=== PATIENT | female | born 1945 | race Caucasian/White ===

== ENCOUNTER 2017-02-02 22:07 | Inpatient (IN) | payer MEDICARE, OTHER ==
[2017-02-02 22:44] LABS: #Eosinphils 0.3 thou/uL (0.0-0.7); #Lymphocytes 1.8 thou/uL (1.20-3.40); #Monocytes 0.6 thou/uL (0.11-0.59); #Neutrophils 6.9 thou/uL (1.40-6.50); %Basophils 0.3 % (0.0-1.0); %Eosinophils 2.9 % (0.0-10.0); %Lymphocytes 18.8 % (21.0-51.0); %Monocytes 6.2 % (0.0-10.0); Hematocrit 34.1 % (36.0-47.0); Mean Platelet Volume 7.1 fL (7.4-10.4); Red Blood Cell (RBC) Count 3.74 mill/uL (4.20-5.40); White Blood Cell (WBC) Count 9.7 thou/uL (4.8-10.8)
[2017-02-02 23:03] LABS: ALT (SGPT) 7 U/L (8-55); AST (SGOT) 11 U/L (5-34); Alkaline Phosphatase 131 U/L (40-150); Anion Gap 19 mmol/L (10-20); BUN (Urea Nitrogen) 15 mg/dL (9.8-20.1); Bilirubin, Total 0.5 mg/dL (0.2-1.2); Calc. Creatinine Clearance 0 mL/min (70-130); Calcium 8.9 mg/dL (7.8-10.44); Carbon Dioxide 22 mmol/L (23-31); Chloride 100 mmol/L (98-107); Estimated GFR-MDRD 53; Globulin 3.1 g/dL (2.4-3.5); Protein, Total 6.6 g/dL (6.0-8.3)
[2017-02-03] MEDS ORDERED: Enoxaparin Sodium 100 MG/ML SYRINGE ONE (01:52)
[2017-02-03] MEDS ORDERED: Enoxaparin Sodium 30 MG/0.3 ML SYRINGE ONE (02:04)
[2017-02-03] MEDS ORDERED: Acetaminophen 325 MG TAB PO PRN ×2 (02:47→07:02)
[2017-02-03] MEDS ORDERED: Ondansetron HCl/PF 4 MG/2 ML Vial IVP PRN ×2 (02:47→07:02)
[2017-02-03] MEDS ORDERED: Ondansetron ODT 4 MG TAB SL PRN (02:47)
[2017-02-03 03:23] VITALS: BMI 48.8
[2017-02-03] MEDS ORDERED: Chloraseptic Spray 180 ml Bottle PO PRN (07:02)
[2017-02-03] MEDS ORDERED: Artificial Tears 18 DROP/0.9 ML EA EYE PRN (07:02)
[2017-02-03] MEDS ORDERED: Loperamide HCl 2 MG CAP PO PRN (07:02)
[2017-02-03] MEDS ORDERED: Eucerin (Mineral Oil/Petrolatum,White) 30 gm Jar TOP PRN (07:02)
[2017-02-03] MEDS ORDERED: Zolpidem Tartrate 5 MG TAB PO PRN (07:02)
[2017-02-03] MEDS ORDERED: hydrALAZINE 20 MG/ML VIAL SLOW IVP PRN (07:02)
[2017-02-03] MEDS ORDERED: Diabetic Tussin 200 MG/10 ML UDCUP PO PRN (07:02)
[2017-02-03] MEDS ORDERED: Senokot 8.6 MG TAB PO PRN (07:02)
[2017-02-03] MEDS ORDERED: Ondansetron ODT 4 MG TAB PO PRN (07:02)
[2017-02-03] MEDS ORDERED: Sodium Chloride 0.65% Nasal 44 ML BOT EA NARE PRN (07:02)
[2017-02-03] MEDS ORDERED: Mag-Al 1200 mg/1200 mg/30 ML UDCUP PO PRN (07:02)
[2017-02-03] MEDS ORDERED: Loratadine 10 MG TAB PO PRN (07:02)
[2017-02-03 08:27] LABS: Prothrombin Time 13.7 SEC (12.0-14.7)
[2017-02-03] MEDS ORDERED: Enoxaparin Sodium 80 MG/0.8 ML SYRINGE SC SCH ×3 (09:00→11:00)
[2017-02-03] MEDS: Hydrochlorothiazide 25 MG TAB PO SCH (09:12)
[2017-02-03] MEDS: Docusate 100 MG CAP PO SCH (09:13)
[2017-02-03] MEDS: TROSPIUM 20 MG TABLET PO SCH ×2 (09:13→20:18)
[2017-02-03] MEDS ORDERED: Levothyroxine Sodium 25 MCG TAB PO SCH (11:00)
[2017-02-03] MEDS ORDERED: Levothyroxine Sodium 112 MCG TAB PO SCH (11:00)
[2017-02-03] MEDS: Levothyroxine Sodium 112 MCG TAB PO SCH (11:04)
[2017-02-03] MEDS: Levothyroxine Sodium 25 MCG TAB PO SCH (11:04)
[2017-02-03] MEDS: HYDROcodone/Acetaminophen 10/325 mg Tablet PO PRN (12:48)
[2017-02-03] MEDS: Milk Of Magnesia 30 ML UDCUP PO PRN (12:48)
--- NOTE | 2017-02-03 13:27 | ULT ---
PRELIMINARY REPORT/[facility]/EMERGENCY AFTER HOURS PROCEDURE: Addendum created by Khoi Watkins MD on 02/03/2017 12:54 AM Central Time ([place] & [place]) Findings dis cussed with FRED CAROLINA MD at time of interpretation. Initial Report created on 02/03/2017 12:35 A M Central Time ([place] & [place]) EXAM: US Duplex Bilateral Lower Extremity Veins EXAM DATE/TIME: Exam ordered 02/02/2017 11:35 PM CLINICAL HISTORY: 71 years old, female; Pain and signs and symptoms; Edema, localized; Lower extremity, bilateral; Leg, lower; Prior surgery; Surgery date: 1-6 months; Surgery type: Rt knee replacement; Patient HX: HX: P revious dvt ble last year, ivc filter in place TECHNIQUE: Real-time ultrasound scan of the veins of the bilateral lower extremities with color Doppler flow, sp ectral waveform analysis and compression. COMPARISON: No relevant prior studies available. FINDINGS: Right deep veins: Unremarkable. No DVT in the right common femoral, femoral, proximal deep femoral or popliteal veins. The veins demonstrate normal color flow, are normally compressible, with normal pha sic flow and/or augmentation response. Right superficial veins: Unremarkable. No thrombus in the visualized right great saphenous vein. Left deep veins: Essentially occlusive or near occlusive thrombosis throughout the left common femoral vein, superficial femoral vein, popliteal vein, and posterior tibial vein. Left superficial veins: Unremarkable. No thrombus in the visualized left great saphenous vein. Soft tissues: No acute findings. No popliteal cyst. IMPRESSION: 1. Essentially occlusive or near occlusive thrombosis throughout the left common femoral vein, superf icial femoral vein, popliteal vein, and posterior tibial vein. 2. No DVT in the right lower extremity. Thank you for allowing us to participate in the care of your patient. Dictated and Authenticated by: Khoi Watkins MD 02/03/2017 12:35 AM Central Time ([place] & [place]) FINAL REPORT EMERGENCY AFTER HOURS BILATERAL LOWER EXTREMITY VENOUS DOPPLER WITH SPECTRAL ANALYSIS AND COLOR FLOW EVALUATION: Date: 02/02/17 HISTORY: Bilateral lower extremity pain and localized edema. History of right knee replacement, as well as his tory of prior bilateral lower extremity deep venous thrombosis 1 year ago. IVC filter in place. IMPRESSION: 1. Occlusive or near occlusive deep venous thrombosis involving the left lower extremity extending f rom the left lower extremity posterior tibial vein to the left common femoral vein. 2. No evidence of a deep venous thrombosis involving the right lower extremity. 3. Subcutaneous edema distal left lower extremity. Findings are in agreement with the preliminary report by Nitin. POS: GREG
--- NOTE | 2017-02-03 13:57 | HP ---
PRIMARY CARE PHYSICIAN: Dr. Salinas Aguilar. REASON FOR ADMISSION: Acute deep vein thrombosis of left lower extremity. HISTORY OF PRESENT ILLNESS: A 71-year-old female who has morbid obesity, who has previous history of pulmonary embolism as well as deep vein thromboses. She also had IVC filter in place, who came to [facility] emergency room with increasing left lower extremity swelling and pain. Patient reports that she had right lower extremity swelling after knee replacement, which was done ab out a month ago, but after few weeks of surgery, patient's right lower extremity swelling was improve d and for the last one week she noticed that her left lower extremity was gradually getting more swol april than the right lower extremity and she was also having pain in her thigh as well as calf and she was concerned about and that is why she decided to come to the emergency room for evaluation. The pa dionte was also having significant amount of pain in her left lower extremity about 7/10 and that was also bothering her. The patient noticed that because of swelling and pain, her daily activity was al so reduced. Patient denies any immobilization. She denies any trauma to left lower extremity. She denies any fever or chills. She denies any chest pain, palpitation or shortness of breath. She has a history of DVT and pulmonary embolism, at that time, patient finished almost 6 months of [facility] anticoagulation therapy and patient also reported that she had IVC filter placed by Dr. Zaynab hsu after first time diagnosis of deep venous thrombosis and pulmonary embolism. ALLERGIES: CODEINE. The patient is not allergic to hydrocodone she is taking at home. HOME MEDICATIONS: Benazepril 40 mg p.o. daily, Colace 100 mg p.o. daily, hydrochlorothiazide 25 mg p .o. daily, [place] 10 1-2 tablets q.6 hourly p.r.n., Synthroid 137 mcg p.o. daily, Toprol-XL 50 mg p.o. daily, oxybutynin ER 10 mg p.o. daily, Effexor 75 mg p.o. daily. REVIEW OF SYSTEMS: The following complete review of systems was negative, unless otherwise mentioned in the HPI or below: Constitutional: Weight loss or gain, ability to conduct usual activities. Skin: Rash, itching. Eyes: Double vision, pain. ENT/Mouth: Nose bleeding, neck stiffness, pain, tenderness. Cardiovascular: Palpitations, dyspnea on exertion, orthopnea. Respiratory: Shortness of breath, wheezing, cough, hemoptysis, fever or night sweats. Gastrointestinal: Poor appetite, abdominal pain, heartburn, nausea, vomiting, constipation, or diarr hea. Genitourinary: Urgency, frequency, dysuria, nocturia. Musculoskeletal: Pain, swelling. Neurologic/Psychiatric: Anxiety, depression. Allergy/Immunologic: Skin rash, bleeding tendency. Please see my HPI for pertinent positives and negatives. All other review of systems reviewed and ne gative except as mentioned in the HPI. PAST MEDICAL HISTORY: Hypertension, hypothyroidism, obstructive sleep apnea, history of deep venous thrombosis and pulmonary embolism in 2004. PAST PSYCHIATRIC HISTORY: Anxiety and depression. PAST SURGICAL HISTORY: Right shoulder repair, left shoulder replacement, right knee arthroscopic jordana pollo, left knee total replacement, status post right total knee replacement, appendicectomy, cholecys tectomy, thyroidectomy, hysterectomy. SOCIAL HISTORY: Patient lives at home with her . No history of tobacco, alcohol or illicit d rug abuse. 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 FAMILY HISTORY: Mother from stroke by age of 80. Father from heart attack by age of 82. EMERGENCY ROOM COURSE: Patient is given Lovenox 1 mg per kg. PHYSICAL EXAMINATION: VITAL SIGNS: On arrival, blood pressure 128/91, pulse 121, respiratory rate 20, temperature 98.5, sa turation 98% on room air, weight 127.01 kilograms. GENERAL: Patient is currently alert, awake, no obvious acute distress. HEAD: Normocephalic, atraumatic. EYES: Pupils round, reactive to light. Extraocular muscles intact. ENT: Oropharynx within normal limits. Moist mucous membranes. No oral lesions. No pharyngeal eryt ren, no exudate. NECK: Supple, no JVD, no thyromegaly, no carotid bruits. LUNGS: Clear to auscultation without any rhonchi or rales. CARDIAC: S1, S2 regular. No murmur elicited, no gallop, no rub. ABDOMEN: Obesity present. Bowel sounds present, nontender, nondistended. No organomegaly, no mass, no suprapubic tenderness. BACK: Unremarkable, no CVA tenderness. EXTREMITIES: Upper extremities: Passive movement of all joints are normal. Lower extremities: Lef t lower extremity is swollen more than right lower extremity. Patient does have tenderness on the le ft lower extremity. NEUROLOGIC: Nonfocal examination. She is able to move all four limbs, plantar bilateral flexor. PSYCHIATRIC: Normal affect. SKIN: No skin rash. SIGNIFICANT LABORATORY DATA AND IMAGIN. Ultrasound of lower extremity positive for deep vein thrombosis in the left lower extremity with a left common femoral vein, superficial femoral vein, popliteal vein and posterior tibial vein involv ement. No DVT in the right lower extremity. 2. CBC: WBC 9.7, hemoglobin 11.2, platelet 235. INR 1.0. BMP: Sodium 137, potassium 3.5, chlorid e 100, carbon dioxide 22, BUN 15, creatinine 1.03, glucose 179, calcium 8.9. 3. LFTs: AST 11, ALT 7, alkaline phosphatase 131, albumin 3.5. ASSESSMENT AND PLAN: 1. Acute left lower extremity deep vein thromboses. The patient has pretty much extensive deep veno us thrombosis in left lower extremity, most likely related with her recent immobilization after a rig ht knee replacement. This patient has previous history of deep venous thrombosis well as pulmonary e mbolism. She does have an IVC filter in place. At this point, the patient decided with warfarin the rapy. I provided the patient education about Eliquis and Xarelto option and risk and benefits of war farin as well as risk and benefit of Eliquis and Xarelto therapy, but the patient selected warfarin t herapy, which she had experienced before. At this point, I will continue with Lovenox 1 mg per kg do bcutaneous twice daily along with warfarin therapy. We will monitor PT/INR and we will monitor H&H, platelets and creatinine every other day. Whenever INR is therapeutic, at that point, we will consid er changing to warfarin therapy only and consider discharge. This patient is advised to have chronic anticoagulation therapy for lifelong given second episode. Her pain will be controlled with [place]. 2. Morbid obesity with a history of obstructive sleep apnea. The patient can use her home CPAP mach ine if she wanted to use while in hospital. Dietary education given, weight loss education given. 3. Hypertension. If blood pressure permits, then we will continue benazepril 40 mg p.o. daily, Topr ol-XL 50 mg p.o. daily. 4. Hypothyroidism. We will continue Synthroid 137 mcg p.o. daily. 5. Anxiety and depression. We will continue Effexor 75 mg p.o. daily. 6. Osteoarthritis. The patient's pain will be controlled with [place]. 7. Deep venous thrombosis prophylaxis. Patient is already on full dose of Lovenox therapy. 8. Gastrointestinal prophylaxis, Protonix 40 mg p.o. daily. CODE STATUS: The patient is FULL CODE. Patient's is surrogate decision maker. Disposition and plan based on clinical course. We are expecting patient's stay in hospital more than 2 midnights. Plan of care discussed with the patient in detail.
[2017-02-03] MEDS: Warfarin Sodium 5 MG TAB PO SCH (17:16)
[2017-02-03] MEDS: Enoxaparin Sodium 80 MG/0.8 ML SYRINGE SC SCH (20:19)
[2017-02-04] MEDS: HYDROcodone/Acetaminophen 10/325 mg Tablet PO PRN ×2 (01:29→08:06)
[2017-02-04 05:21] LABS: #Basophils 0.1 thou/uL (0.0-0.2); #Eosinphils 0.5 thou/uL (0.0-0.7); #Lymphocytes 1.4 thou/uL (1.20-3.40); #Monocytes 0.7 thou/uL (0.11-0.59); #Neutrophils 6.1 thou/uL (1.40-6.50); %Basophils 0.6 % (0.0-1.0); %Eosinophils 5.7 % (0.0-10.0); %Lymphocytes 16.4 % (21.0-51.0); %Monocytes 7.5 % (0.0-10.0); Hematocrit 32.7 % (36.0-47.0); Mean Platelet Volume 8.4 fL (7.4-10.4); Red Blood Cell (RBC) Count 3.61 mill/uL (4.20-5.40); White Blood Cell (WBC) Count 8.7 thou/uL (4.8-10.8)
[2017-02-04 05:48] LABS: Prothrombin Time 14.1 SEC (12.0-14.7)
[2017-02-04 05:57] LABS: ALT (SGPT) Less than 7 U/L (8-55); AST (SGOT) 10 U/L (5-34); Alkaline Phosphatase 119 U/L (40-150); Anion Gap 13 mmol/L (10-20); BUN (Urea Nitrogen) 15 mg/dL (9.8-20.1); Bilirubin, Total 0.6 mg/dL (0.2-1.2); Calc. Creatinine Clearance 123 mL/min (70-130); Calcium 9.3 mg/dL (7.8-10.44); Carbon Dioxide 27 mmol/L (23-31); Chloride 98 mmol/L (98-107); Estimated GFR-MDRD 63; Globulin 3.3 g/dL (2.4-3.5); Protein, Total 6.6 g/dL (6.0-8.3)
[2017-02-04] MEDS: Levothyroxine Sodium 25 MCG TAB PO SCH (07:51)
[2017-02-04] MEDS: Levothyroxine Sodium 112 MCG TAB PO SCH (07:51)
[2017-02-04] MEDS: Docusate 100 MG CAP PO SCH ×2 (08:04→08:05)
[2017-02-04] MEDS: Hydrochlorothiazide 25 MG TAB PO SCH (08:05)
[2017-02-04] MEDS: TROSPIUM 20 MG TABLET PO SCH ×2 (08:05→21:13)
[2017-02-04] MEDS: Enoxaparin Sodium 80 MG/0.8 ML SYRINGE SC SCH ×2 (08:09→21:15)
--- NOTE | 2017-02-04 11:32 | PDOC.PN ---
- Subjective Encounter Start Date: 02/04/17 Encounter Start Time: 06:30 -: old records requested/rev Patient seen and examined. No new complaints. No overnight events - Objective Resuscitation Status: Resuscitation Status FULL:Full Resuscitation MAR Reviewed: Yes Vital Signs & Weight: Vital Signs (12 hours) Temp Pulse Resp BP BP Pulse Ox 02/04/17 08:05 120/63 02/04/17 08:00 98.3 F 86 20 100 02/04/17 07:25 98.3 F 86 20 138/73 100 02/04/17 04:00 98.3 F 83 16 130/61 93 L Weight Weight 302 lb 8 oz I&O: 02/03/17 02/04/17 02/05/17 06:59 06:59 06:59 Intake Total 120 Balance 120 Result Diagrams: 02/04/17 03:44 02/04/17 03:44 Radiology Reviewed by me: Yes ( ) Phys Exam - Physical Examination Constitutional: NAD HEENT: PERRLA, moist MMs, sclera anicteric Neck: no JVD, supple Respiratory: no wheezing, no rales, no rhonchi Cardiovascular: RRR, no significant murmur, no rub Gastrointestinal: soft, non-tender, no distention, positive bowel sounds obesity left leg sw[place]on Neurological: non-focal, normal sensation Psychiatric: normal affect, A&O x 3 Skin: no rash, normal turgor Dx/Plan (1) DVT, lower extremity, proximal, acute Code(s): I82.4Y9 - ACUTE EMBLSM AND THOMBOS UNSP DEEP VN UNSP PROX LOW EXTRM Status: Acute Qualifiers: Laterality: left Qualified Code(s): I82.4Y2 - Acute embolism and thrombosis of unspecified deep veins of left proximal lower extremity (2) Hypertension Code(s): I10 - ESSENTIAL (PRIMARY) HYPERTENSION Status: Chronic (3) Anxiety and depression Code(s): F41.8 - OTHER SPECIFIED ANXIETY DISORDERS Status: Chronic (4) Morbid obesity with BMI of 45.0-49.9, adult Code(s): E66.01 - MORBID (SEVERE) OBESITY DUE TO EXCESS CALORIES; Z68.42 - BODY MASS INDEX (BMI) 45.0-49.9, ADULT Status: Chronic (5) Hypothyroidism Code(s): E03.9 - HYPOTHYROIDISM, UNSPECIFIED Status: Chronic (6) History of pulmonary embolism Code(s): Z86.711 - PERSONAL HISTORY OF PULMONARY EMBOLISM Status: Chronic - Plan cont current plan of care * continue lovenox and wafarin * pain controlled * continue home medication * medication reviewed as below * symptomatic treatment. Review of Systems - Review of Systems Eyes: negative: Pain, Vision Change, Conjunctivae Inflammation, Eyelid Inflammation, Redness, Other ENT: negative: Ear Pain, Ear Discharge, Nose Pain, Nose Discharge, Nose Congestion, Mouth Pain, Mouth Swelling, Throat Pain, Throat Swelling, Other Respiratory: negative: Cough, Dry, Shortness of Breath, Hemoptysis, SOB with Excertion, Pleuritic Pain, Sputum, Wheezing Cardiovascular: negative: Chest Pain, Palpitations, Orthopnea, Paroxysmal Noc. Dyspnea, Edema, Light Headedness, Other Gastrointestinal: negative: Nausea, Vomiting, Abdominal Pain, Diarrhea, Constipation, Melena, Hematochezia, Other Genitourinary: negative: Dysuria, Frequency, Incontinence, Hematuria, Retention , Other Musculoskeletal: Leg Pain. negative: Neck Pain, Shoulder Pain, Arm Pain, Back Pain, Hand Pain, Foot Pain, Other Skin: negative: Rash, Lesions, Kwasi, Bruising, Other - Medications/Allergies Allergies/Adverse Reactions: Allergies Allergy/AdvReac Type Severity Reaction Status Date / Time codeine Allergy itch Verified 11/04/14 12:17 hydrocodone AdvReac itch Verified 11/04/14 12:17 surgical tape Allergy rash, hives Uncoded 11/04/14 12:17 Medications: Current Medications Acetaminophen (Tylenol) 650 mg PO Q4H PRN PRN Reason: Headache/Fever or Pain Hydrocodone Bitart/Acetaminophen ([place] 10/325) 1 tab PO Q6H PRN PRN Reason: Pain Last Admin: 02/04/17 08:06 Dose: 1 tab Al Hydroxide/Mg Hydroxide (Maalox) 30 ml PO Q6H PRN PRN Reason: Heartburn or Indigestion Artificial Tears (Tears Naturale) 0 drop EA EYE PRN PRN PRN Reason: Dry Eyes Benazepril HCl (Lotensin) 40 mg PO DAILY [facility] Last Admin: 02/04/17 08:05 Dose: 40 mg Docusate Sodium (Colace) 100 mg PO DAILY [facility] Last Admin: 02/04/17 08:05 Dose: 100 mg Enoxaparin Sodium (Lovenox) 140 mg SC 0900,2100 [facility] Last Admin: 02/04/17 08:09 Dose: 140 mg Guaifenesin (Robitussin Sf) 200 mg PO Q4H PRN PRN Reason: Cough Hydralazine HCl (Apresoline) 10 mg SLOW IVP Q4H PRN PRN Reason: Systolic BP > 180 Hydrochlorothiazide (Hydrochlorothiazide) 25 mg PO DAILY [facility] Last Admin: 02/04/17 08:05 Dose: 25 mg Levothyroxine Sodium (Synthroid) 112 mcg PO 0600 [facility] Last Admin: 02/04/17 07:51 Dose: 112 mcg Levothyroxine Sodium (Synthroid) 25 mcg PO 0600 [facility] Last Admin: 02/04/17 07:51 Dose: 25 mcg Loperamide HCl (Imodium) 2 mg PO PRN PRN PRN Reason: Diarrhea/Loose Stools Loratadine (Claritin) 10 mg PO DAILYPRN PRN PRN Reason: Sinus Symptoms Magnesium Hydroxide (Milk Of Magnesium) 30 ml PO DAILYPRN PRN PRN Reason: Constipation Last Admin: 02/03/17 12:48 Dose: 30 ml Metoprolol Succinate (Toprol Xl) 50 mg PO DAILY [facility] Last Admin: 02/04/17 08:05 Dose: 50 mg Mineral Oil/White Petrolatum (Eucerin Cream) 0 gm TOP BIDPRN PRN PRN Reason: Dry Skin Ondansetron HCl (Zofran Odt) 4 mg PO Q6H PRN PRN Reason: Nausea/Vomiting Ondansetron HCl (Zofran) 4 mg IVP Q6H PRN PRN Reason: Nausea/Vomiting Pantoprazole Sodium (Protonix) 40 mg PO DAILY [facility] Last Admin: 02/04/17 08:05 Dose: 40 mg Phenol (Chloraseptic [employer] 180 Ml Bot) 0 ml PO PRN PRN PRN Reason: Sore Throat Senna (Senokot) 2 tab PO HSPRN PRN PRN Reason: Constipation Sodium Chloride ([place] Nasal [employer] 0.65%) 0 ml EA NARE QIDPRN PRN PRN Reason: Nasal Congestion Trospium (Trospium Chloride) 20 mg PO BID [facility] Last Admin: 02/04/17 08:05 Dose: 20 mg Venlafaxine HCl (Effexor) 75 mg PO DAILY [facility] Last Admin: 02/04/17 08:06 Dose: 75 mg Warfarin Sodium (Coumadin) 5 mg PO 1700 [facility] Last Admin: 02/03/17 17:16 Dose: 5 mg Zolpidem Tartrate (Ambien) 5 mg PO HSPRN PRN PRN Reason: Insomnia
[2017-02-04] MEDS: Warfarin Sodium 5 MG TAB PO SCH (16:44)
[2017-02-05 04:04] LABS: Prothrombin Time 14.1 SEC (12.0-14.7)
[2017-02-05] MEDS: Levothyroxine Sodium 25 MCG TAB PO SCH (05:20)
[2017-02-05] MEDS: Levothyroxine Sodium 112 MCG TAB PO SCH (05:20)
[2017-02-05] MEDS: Enoxaparin Sodium 80 MG/0.8 ML SYRINGE SC SCH ×2 (08:45→20:38)
[2017-02-05] MEDS: Hydrochlorothiazide 25 MG TAB PO SCH (08:47)
[2017-02-05] MEDS: TROSPIUM 20 MG TABLET PO SCH ×2 (08:47→20:39)
[2017-02-05] MEDS: Docusate 100 MG CAP PO SCH (08:49)
--- NOTE | 2017-02-05 11:21 | PDOC.PN ---
- Subjective Encounter Start Date: 02/05/17 Encounter Start Time: 07:10 still has left leg swelling, pain controlled - Objective Resuscitation Status: Resuscitation Status FULL:Full Resuscitation MAR Reviewed: Yes Vital Signs & Weight: Vital Signs (12 hours) Temp Pulse Resp BP BP BP Pulse Ox 02/05/17 08:44 110/65 02/05/17 08:00 98.8 F 90 16 110/65 95 02/05/17 05:21 99.0 F 92 16 132/78 02/05/17 00:00 99.3 F 99 20 148/72 H 97 Weight Weight 302 lb 8 oz I&O: 02/04/17 02/05/17 02/06/17 06:59 06:59 06:59 Intake Total 1140 Output Total 775 Balance 365 Result Diagrams: 02/05/17 03:37 02/05/17 03:37 Phys Exam - Physical Examination Constitutional: NAD HEENT: PERRLA, moist MMs, sclera anicteric Neck: no nodes, no JVD, supple, full ROM Respiratory: no wheezing, no rales, no rhonchi Cardiovascular: RRR, no significant murmur, no rub Gastrointestinal: soft, non-tender, no distention, positive bowel sounds obesity+ edema left leg Neurological: non-focal, normal sensation, moves all 4 limbs Psychiatric: normal affect, A&O x 3 Skin: no rash, normal turgor Dx/Plan (1) DVT, lower extremity, proximal, acute Code(s): I82.4Y9 - ACUTE EMBLSM AND THOMBOS UNSP DEEP VN UNSP PROX LOW EXTRM Status: Acute Qualifiers: Laterality: left Qualified Code(s): I82.4Y2 - Acute embolism and thrombosis of unspecified deep veins of left proximal lower extremity (2) Hypertension Code(s): I10 - ESSENTIAL (PRIMARY) HYPERTENSION Status: Chronic (3) Anxiety and depression Code(s): F41.8 - OTHER SPECIFIED ANXIETY DISORDERS Status: Chronic (4) Morbid obesity with BMI of 45.0-49.9, adult Code(s): E66.01 - MORBID (SEVERE) OBESITY DUE TO EXCESS CALORIES; Z68.42 - BODY MASS INDEX (BMI) 45.0-49.9, ADULT Status: Chronic (5) Hypothyroidism Code(s): E03.9 - HYPOTHYROIDISM, UNSPECIFIED Status: Chronic (6) History of pulmonary embolism Code(s): Z86.711 - PERSONAL HISTORY OF PULMONARY EMBOLISM Status: Chronic - Plan cont current plan of care, PT/OT * change warfarin 7.5 mg po daily * continue lovenox * start PT * medication reviewed as below * symptomatic treatment. Review of Systems - Review of Systems Constitutional: negative: Fever, Chills, Sweats, Weakness, Malaise, Other Eyes: negative: Pain, Vision Change, Conjunctivae Inflammation, Eyelid Inflammation, Redness, Other ENT: negative: Ear Pain, Ear Discharge, Nose Pain, Nose Discharge, Nose Congestion, Mouth Pain, Mouth Swelling, Throat Pain, Throat Swelling, Other Cardiovascular: negative: Chest Pain, Palpitations, Orthopnea, Paroxysmal Noc. Dyspnea, Edema, Light Headedness, Other Gastrointestinal: negative: Nausea, Vomiting, Abdominal Pain, Diarrhea, Constipation, Melena, Hematochezia, Other Genitourinary: negative: Dysuria, Frequency, Incontinence, Hematuria, Retention , Other Musculoskeletal: Leg Pain. negative: Neck Pain, Shoulder Pain, Arm Pain, Back Pain, Hand Pain, Foot Pain, Other - Medications/Allergies Allergies/Adverse Reactions: Allergies Allergy/AdvReac Type Severity Reaction Status Date / Time codeine Allergy itch Verified 11/04/14 12:17 hydrocodone AdvReac itch Verified 11/04/14 12:17 surgical tape Allergy rash, hives Uncoded 11/04/14 12:17 Medications: Current Medications Acetaminophen (Tylenol) 650 mg PO Q4H PRN PRN Reason: Headache/Fever or Pain Hydrocodone Bitart/Acetaminophen ([place] 10/325) 1 tab PO Q6H PRN PRN Reason: Pain Last Admin: 02/04/17 08:06 Dose: 1 tab Al Hydroxide/Mg Hydroxide (Maalox) 30 ml PO Q6H PRN PRN Reason: Heartburn or Indigestion Last Admin: 02/05/17 01:15 Dose: 30 ml Artificial Tears (Tears Naturale) 0 drop EA EYE PRN PRN PRN Reason: Dry Eyes Benazepril HCl (Lotensin) 40 mg PO DAILY [facility] Last Admin: 02/05/17 08:44 Dose: 40 mg Docusate Sodium (Colace) 100 mg PO DAILY [facility] Last Admin: 02/05/17 08:49 Dose: 100 mg Enoxaparin Sodium (Lovenox) 140 mg SC 0900,2100 [facility] Last Admin: 02/05/17 08:45 Dose: 140 mg Guaifenesin (Robitussin Sf) 200 mg PO Q4H PRN PRN Reason: Cough Hydralazine HCl (Apresoline) 10 mg SLOW IVP Q4H PRN PRN Reason: Systolic BP > 180 Hydrochlorothiazide (Hydrochlorothiazide) 25 mg PO DAILY [facility] Last Admin: 02/05/17 08:47 Dose: 25 mg Levothyroxine Sodium (Synthroid) 112 mcg PO 0600 [facility] Last Admin: 02/05/17 05:20 Dose: 112 mcg Levothyroxine Sodium (Synthroid) 25 mcg PO 0600 [facility] Last Admin: 02/05/17 05:20 Dose: 25 mcg Loperamide HCl (Imodium) 2 mg PO PRN PRN PRN Reason: Diarrhea/Loose Stools Loratadine (Claritin) 10 mg PO DAILYPRN PRN PRN Reason: Sinus Symptoms Magnesium Hydroxide (Milk Of Magnesium) 30 ml PO DAILYPRN PRN PRN Reason: Constipation Last Admin: 02/03/17 12:48 Dose: 30 ml Metoprolol Succinate (Toprol Xl) 50 mg PO DAILY [facility] Last Admin: 02/05/17 08:47 Dose: 50 mg Mineral Oil/White Petrolatum (Eucerin Cream) 0 gm TOP BIDPRN PRN PRN Reason: Dry Skin Ondansetron HCl (Zofran Odt) 4 mg PO Q6H PRN PRN Reason: Nausea/Vomiting Last Admin: 02/05/17 08:42 Dose: 4 mg Ondansetron HCl (Zofran) 4 mg IVP Q6H PRN PRN Reason: Nausea/Vomiting Pantoprazole Sodium (Protonix) 40 mg PO DAILY [facility] Last Admin: 02/05/17 08:47 Dose: 40 mg Phenol (Chloraseptic [place] 180 Ml Bot) 0 ml PO PRN PRN PRN Reason: Sore Throat Senna (Senokot) 2 tab PO HSPRN PRN PRN Reason: Constipation Sodium Chloride ([place] Nasal [employer] 0.65%) 0 ml EA NARE QIDPRN PRN PRN Reason: Nasal Congestion Trospium (Trospium Chloride) 20 mg PO BID [facility] Last Admin: 02/05/17 08:47 Dose: 20 mg Venlafaxine HCl (Effexor) 75 mg PO DAILY [facility] Last Admin: 02/05/17 08:48 Dose: 75 mg Warfarin Sodium (Coumadin) 5 mg PO 1700 [facility] Last Admin: 02/04/17 16:44 Dose: 5 mg Zolpidem Tartrate (Ambien) 5 mg PO HSPRN PRN PRN Reason: Insomnia
[2017-02-05] MEDS: Warfarin Sodium 7.5 MG TAB PO SCH (16:35)
[2017-02-05] MEDS: Milk Of Magnesia 30 ML UDCUP PO PRN (16:57)
[2017-02-06] MEDS: HYDROcodone/Acetaminophen 10/325 mg Tablet PO PRN ×2 (00:52→21:27)
[2017-02-06 04:06] LABS: Prothrombin Time 16.8 SEC (12.0-14.7)
[2017-02-06] MEDS: Levothyroxine Sodium 25 MCG TAB PO SCH (06:17)
[2017-02-06] MEDS: Levothyroxine Sodium 112 MCG TAB PO SCH (06:17)
[2017-02-06] MEDS: TROSPIUM 20 MG TABLET PO SCH ×2 (08:30→21:28)
[2017-02-06] MEDS: Hydrochlorothiazide 25 MG TAB PO SCH (08:30)
[2017-02-06] MEDS: Docusate 100 MG CAP PO SCH (08:31)
[2017-02-06] MEDS: Enoxaparin Sodium 80 MG/0.8 ML SYRINGE SC SCH ×2 (08:32→21:30)
--- NOTE | 2017-02-06 11:39 | PDOC.PN ---
- Subjective Encounter Start Date: 02/06/17 Encounter Start Time: 07:00 Patient seen and examined. No new complaints. No overnight events - Objective Resuscitation Status: Resuscitation Status FULL:Full Resuscitation MAR Reviewed: Yes Vital Signs & Weight: Vital Signs (12 hours) Temp Pulse Resp BP BP Pulse Ox 02/06/17 08:30 136/66 02/06/17 08:00 98.4 F 71 16 136/66 97 02/06/17 05:30 98 F 87 19 133/67 97 02/05/17 23:55 99.2 F 85 19 133/76 94 L Weight Weight 302 lb 8 oz I&O: 02/05/17 02/06/17 02/07/17 06:59 06:59 06:59 Intake Total 1140 750 Output Total 775 Balance 365 750 Result Diagrams: 02/05/17 03:37 02/05/17 03:37 Phys Exam - Physical Examination Constitutional: NAD HEENT: PERRLA, moist MMs, sclera anicteric Neck: no JVD, supple Respiratory: no wheezing, no rales, no rhonchi Cardiovascular: RRR, no significant murmur, no rub Gastrointestinal: soft, non-tender, no distention, positive bowel sounds Musculoskeletal: pulses present left LE swelling Neurological: non-focal, normal sensation Psychiatric: normal affect, A&O x 3 Skin: no rash, normal turgor Dx/Plan (1) DVT, lower extremity, proximal, acute Code(s): I82.4Y9 - ACUTE EMBLSM AND THOMBOS UNSP DEEP VN UNSP PROX LOW EXTRM Status: Acute Qualifiers: Laterality: left Qualified Code(s): I82.4Y2 - Acute embolism and thrombosis of unspecified deep veins of left proximal lower extremity (2) Hypertension Code(s): I10 - ESSENTIAL (PRIMARY) HYPERTENSION Status: Chronic (3) Anxiety and depression Code(s): F41.8 - OTHER SPECIFIED ANXIETY DISORDERS Status: Chronic (4) Morbid obesity with BMI of 45.0-49.9, adult Code(s): E66.01 - MORBID (SEVERE) OBESITY DUE TO EXCESS CALORIES; Z68.42 - BODY MASS INDEX (BMI) 45.0-49.9, ADULT Status: Chronic (5) Hypothyroidism Code(s): E03.9 - HYPOTHYROIDISM, UNSPECIFIED Status: Chronic (6) History of pulmonary embolism Code(s): Z86.711 - PERSONAL HISTORY OF PULMONARY EMBOLISM Status: Chronic - Plan cont current plan of care, PT/OT * medication reviewed as below * symptomatic treatment * continue lovenox and warfarin. * tomorrow will increase warfarin if inr does not increase Review of Systems - Review of Systems ENT: negative: Ear Pain, Ear Discharge, Nose Pain, Nose Discharge, Nose Congestion, Mouth Pain, Mouth Swelling, Throat Pain, Throat Swelling, Other Respiratory: negative: Cough, Dry, Shortness of Breath, Hemoptysis, SOB with Excertion, Pleuritic Pain, Sputum, Wheezing Cardiovascular: negative: Chest Pain, Palpitations, Orthopnea, Paroxysmal Noc. Dyspnea, Edema, Light Headedness, Other Gastrointestinal: negative: Nausea, Vomiting, Abdominal Pain, Diarrhea, Constipation, Melena, Hematochezia, Other Genitourinary: negative: Dysuria, Frequency, Incontinence, Hematuria, Retention , Other Musculoskeletal: negative: Neck Pain, Shoulder Pain, Arm Pain, Back Pain, Hand Pain, Leg Pain, Foot Pain, Other Skin: negative: Rash, Lesions, Kwasi, Bruising, Other - Medications/Allergies Allergies/Adverse Reactions: Allergies Allergy/AdvReac Type Severity Reaction Status Date / Time codeine Allergy itch Verified 11/04/14 12:17 hydrocodone AdvReac itch Verified 11/04/14 12:17 surgical tape Allergy rash, hives Uncoded 11/04/14 12:17 Medications: Current Medications Acetaminophen (Tylenol) 650 mg PO Q4H PRN PRN Reason: Headache/Fever or Pain Hydrocodone Bitart/Acetaminophen ([place] 10/325) 1 tab PO Q6H PRN PRN Reason: Pain Last Admin: 02/06/17 00:52 Dose: 1 tab Al Hydroxide/Mg Hydroxide (Maalox) 30 ml PO Q6H PRN PRN Reason: Heartburn or Indigestion Last Admin: 02/05/17 01:15 Dose: 30 ml Artificial Tears (Tears Naturale) 0 drop EA EYE PRN PRN PRN Reason: Dry Eyes Benazepril HCl (Lotensin) 40 mg PO DAILY [facility] Last Admin: 02/06/17 08:30 Dose: 40 mg Docusate Sodium (Colace) 100 mg PO DAILY [facility] Last Admin: 02/06/17 08:31 Dose: 100 mg Enoxaparin Sodium (Lovenox) 140 mg SC 0900,2100 [facility] Last Admin: 02/06/17 08:32 Dose: 140 mg Guaifenesin (Robitussin Sf) 200 mg PO Q4H PRN PRN Reason: Cough Hydralazine HCl (Apresoline) 10 mg SLOW IVP Q4H PRN PRN Reason: Systolic BP > 180 Hydrochlorothiazide (Hydrochlorothiazide) 25 mg PO DAILY [facility] Last Admin: 02/06/17 08:30 Dose: 25 mg Levothyroxine Sodium (Synthroid) 112 mcg PO 0600 [facility] Last Admin: 02/06/17 06:17 Dose: 112 mcg Levothyroxine Sodium (Synthroid) 25 mcg PO 0600 [facility] Last Admin: 02/06/17 06:17 Dose: 25 mcg Loperamide HCl (Imodium) 2 mg PO PRN PRN PRN Reason: Diarrhea/Loose Stools Loratadine (Claritin) 10 mg PO DAILYPRN PRN PRN Reason: Sinus Symptoms Magnesium Hydroxide (Milk Of Magnesium) 30 ml PO DAILYPRN PRN PRN Reason: Constipation Last Admin: 02/05/17 16:57 Dose: 30 ml Metoprolol Succinate (Toprol Xl) 50 mg PO DAILY [facility] Last Admin: 02/06/17 08:31 Dose: 50 mg Mineral Oil/White Petrolatum (Eucerin Cream) 0 gm TOP BIDPRN PRN PRN Reason: Dry Skin Ondansetron HCl (Zofran Odt) 4 mg PO Q6H PRN PRN Reason: Nausea/Vomiting Last Admin: 02/05/17 08:42 Dose: 4 mg Ondansetron HCl (Zofran) 4 mg IVP Q6H PRN PRN Reason: Nausea/Vomiting Pantoprazole Sodium (Protonix) 40 mg PO DAILY [facility] Last Admin: 02/06/17 08:30 Dose: 40 mg Phenol (Chloraseptic [place] 180 Ml Bot) 0 ml PO PRN PRN PRN Reason: Sore Throat Senna (Senokot) 2 tab PO HSPRN PRN PRN Reason: Constipation Last Admin: 02/05/17 20:39 Dose: 2 tab Sodium Chloride ([place] Nasal [place]kins 0.65%) 0 ml EA NARE QIDPRN PRN PRN Reason: Nasal Congestion Trospium (Trospium Chloride) 20 mg PO BID [facility] Last Admin: 02/06/17 08:30 Dose: 20 mg Venlafaxine HCl (Effexor) 75 mg PO DAILY [facility] Last Admin: 02/06/17 08:31 Dose: 75 mg Warfarin Sodium (Coumadin) 7.5 mg PO 1700 [facility] Last Admin: 02/05/17 16:35 Dose: 7.5 mg Zolpidem Tartrate (Ambien) 5 mg PO HSPRN PRN PRN Reason: Insomnia
[2017-02-06] MEDS: Warfarin Sodium 7.5 MG TAB PO SCH (16:53)
[2017-02-07 04:35] LABS: Hematocrit 30.5 % (36.0-47.0)
[2017-02-07] MEDS: Levothyroxine Sodium 112 MCG TAB PO SCH (05:15)
[2017-02-07] MEDS: Levothyroxine Sodium 25 MCG TAB PO SCH (05:15)
--- NOTE | 2017-02-07 09:04 | PDOC.PN ---
- Subjective Encounter Start Date: 02/07/17 Encounter Start Time: 08:40 Subjective: f/u for LLE DVT on current Coumadin and Lovenox with INR 1.8. -: Some discomfort and persistent swelling in LLE. No CP, SOB - Objective Resuscitation Status: Resuscitation Status FULL:Full Resuscitation MAR Reviewed: Yes Vital Signs & Weight: Vital Signs (12 hours) Temp Pulse Resp BP BP Pulse Ox 02/07/17 07:28 98.1 F 70 20 122/59 L 02/07/17 03:25 98.4 F 70 12 129/65 97 02/07/17 02:59 98 02/06/17 23:26 99.8 F H 93 16 139/97 H 99 Weight Weight 302 lb 8 oz I&O: 02/06/17 02/07/17 02/08/17 06:59 06:59 06:59 Intake Total 750 400 Output Total 100 Balance 750 300 Result Diagrams: 02/07/17 03:41 02/07/17 03:41 Additional Labs: Microbiology 02/03/17 18:10 Stool Stool Occult Blood (GIANCARLO) - Final Laboratory Tests 02/02/17 02/04/17 02/05/17 22:34 03:44 03:37 Hgb 11.2 L 10.5 L 11.2 L INR 02/06/17 02/07/17 03:44 03:41 Hgb INR 1.3 1.8 Radiology Reviewed by me: Yes (BLE sono - LLE occlusive DVT) Phys Exam - Physical Examination Constitutional: NAD HEENT: PERRLA, oral pharynx no lesions Neck: no JVD, supple Respiratory: no wheezing, clear to auscultation bilateral Cardiovascular: RRR Gastrointestinal: soft, non-tender, no distention, positive bowel sounds LLE with marked edema Musculoskeletal: pulses present, edema present Neurological: normal sensation, moves all 4 limbs Psychiatric: A&O x 3 Skin: normal turgor, cap refill <2 seconds Dx/Plan (1) DVT, lower extremity, proximal, acute Code(s): I82.4Y9 - ACUTE EMBLSM AND THOMBOS UNSP DEEP VN UNSP PROX LOW EXTRM Status: Acute Qualifiers: Laterality: left Qualified Code(s): I82.4Y2 - Acute embolism and thrombosis of unspecified deep veins of left proximal lower extremity Comment: INR 1.8 on Coumadin, continue current dose of 7.5mg and likely will be therapeutic in 24h, continue Coumadin indefinitely give second recurrence of DVT (2) Anxiety and depression Code(s): F41.8 - OTHER SPECIFIED ANXIETY DISORDERS Status: Chronic (3) History of pulmonary embolism Code(s): Z86.711 - PERSONAL HISTORY OF PULMONARY EMBOLISM Status: Chronic Comment: IVC filter in place, see #1 (4) Hypertension Code(s): I10 - ESSENTIAL (PRIMARY) HYPERTENSION Status: Chronic Qualifiers: Hypertension type: essential hypertension Qualified Code(s): I10 - Essential (primary) hypertension Comment: Stable, continue current antihypertensive regimen (5) Hypothyroidism Code(s): E03.9 - HYPOTHYROIDISM, UNSPECIFIED Status: Chronic Comment: Continue Synthroid (6) Morbid obesity with BMI of 45.0-49.9, adult Code(s): E66.01 - MORBID (SEVERE) OBESITY DUE TO EXCESS CALORIES; Z68.42 - BODY MASS INDEX (BMI) 45.0-49.9, ADULT Status: Chronic - 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
[2017-02-07] MEDS: TROSPIUM 20 MG TABLET PO SCH ×2 (09:28→20:34)
[2017-02-07] MEDS: Hydrochlorothiazide 25 MG TAB PO SCH (09:28)
[2017-02-07] MEDS: Docusate 100 MG CAP PO SCH (09:29)
[2017-02-07] MEDS: Enoxaparin Sodium 80 MG/0.8 ML SYRINGE SC SCH ×2 (09:29→20:36)
[2017-02-07] MEDS: Warfarin Sodium 7.5 MG TAB PO SCH (17:39)
[2017-02-07] MEDS: Milk Of Magnesia 30 ML UDCUP PO PRN (19:42)
[2017-02-07] MEDS: HYDROcodone/Acetaminophen 10/325 mg Tablet PO PRN (20:44)
[2017-02-08 04:41] LABS: Prothrombin Time 26.3 SEC (12.0-14.7)
[2017-02-08] MEDS: Levothyroxine Sodium 112 MCG TAB PO SCH (05:58)
[2017-02-08] MEDS: Levothyroxine Sodium 25 MCG TAB PO SCH (05:58)
[2017-02-08] MEDS: Hydrochlorothiazide 25 MG TAB PO SCH (10:23)
[2017-02-08] MEDS: TROSPIUM 20 MG TABLET PO SCH (10:24)
[2017-02-08] MEDS: Docusate 100 MG CAP PO SCH (10:25)
[2017-02-08] MEDS: Enoxaparin Sodium 80 MG/0.8 ML SYRINGE SC SCH (10:29)
--- NOTE | 2017-02-08 11:46 | DIS ---
DATE OF ADMISSION: 02/03/2017 DATE OF DISCHARGE: 02/08/2017 DISCHARGE DIAGNOSES: 1. Acute left lower extremity deep venous thrombosis involving posterior tibial vein to the left com mon femoral vein. 2. History of pulmonary embolus status post inferior vena cava filter placement. 3. Hypertension, stable. 4. Hypothyroidism, stable. 5. Morbid obesity. 6. Anxiety/depression, stable. CONSULTATIONS: None. PERTINENT LABORATORY DATA AND X-RAY FINDINGS: Basic metabolic profile within normal limits. CBC ashley wed hemoglobin ranged between 10.1-11.2, platelet count ranged between 228-287, PT 26.3, INR 2.3 on 1 04/10/2016. Stool Hemoccult positive x1 on 02/03/2017. Left lower extremity venous Doppler study ankit ed 02/02/2017 positive for occlusive/near occlusive deep venous thrombosis of the left lower extremit y from the posterior tibial vein to left common femoral vein. HOSPITAL COURSE: Patient was admitted to the medical floor, who initially presented with left lower extremity edema and pain with limited mobility. The patient underwent evaluation including venous Do ppler study showing findings as stated previously. Patient with a prior history of right lower extre mity deep venous thrombosis treated for approximately 6 months with anticoagulation. The patient was initiated on Lovenox subcutaneously throughout her hospital course in addition to Coumadin. The pat ient's INR reached therapeutic levels on 02/08/2017 with current value of 2.3. Current recommendatio ns are to continue lifelong anticoagulation due to second episode of thrombosis. Overall, patient re mained clinically stable through the remainder of the hospital course with O2 saturations of 96%-100% on room air. The patient is ready for discharge on 02/08/2017. DISCHARGE MEDICATIONS: 1. Coumadin 5 mg 1 tablet p.o. daily, goal INR of 2-3. 2. Benazepril 40 mg 1 tablet p.o. daily. 3. Docusate sodium 100 mg 1 tablet p.o. daily. 4. Hydrochlorothiazide 25 mg 1 tablet p.o. daily. 5. Levothyroxine 137 mcg p.o. daily. 6. Toprol-XL 50 mg p.o. daily. 7. Oxybutynin 10 mg p.o. daily. 8. Effexor 75 mg 1 tablet p.o. daily. FOLLOWUP: Patient will follow up with her primary care provider, Dr. Salinas Aguilar within 7 days of dis charge. SPECIAL INSTRUCTIONS: Recommend PT/INR evaluation on 02/10/2017 with goal INR of 2-3. Recommend rep eat stool Hemoccult on first followup visit with primary care provider. DIET: Heart healthy and Coumadin prudent. CODE STATUS: FULL. DISPOSITION: Home on 02/08/2017. Total time preparing and coordinating discharge is 33 minutes.
[2017-02-08 11:58] VITALS: BP 127/70; TEMP 98.7
[2017-02-08] MEDS: Milk Of Magnesia 30 ML UDCUP PO PRN (13:38)
[2017-02-08] MEDS ORDERED: Enoxaparin Sodium 80 MG/0.8 ML SYRINGE SC SCH (21:00)
== END 2017-02-08 15:24 | disposition home or self-care (01) | DRG 300 ==
LOC: ERS 22:07 → ONC 02-03 02:45 → 3SW 02-05 08:15 → ONC 02-05 16:45
PROVIDERS: ADMIT Internal Medicine; ATTEND Internal Medicine
DX: I82.412 Acute embolism and thrombosis of left femoral vein (principal); Z68.42 Body mass index [BMI] 45.0-49.9, adult; I10 Essential (primary) hypertension; E66.01 Morbid (severe) obesity due to excess calories; E03.9 Hypothyroidism, unspecified; F41.9 Anxiety disorder, unspecified; F32.9 Major depressive disorder, single episode, unspecified; Z86.711 Personal history of pulmonary embolism; E78.5 Hyperlipidemia, unspecified; G47.33 Obstructive sleep apnea (adult) (pediatric); M19.90 Unspecified osteoarthritis, unspecified site
CPT/HCPCS: 36415; 80053; 82274; 82565; 85014; 85018; 85025; 85049; 85379; 85610; 93970; 96372; J1650; Q0162

== ENCOUNTER 2017-03-26 17:32 | Emergency (ER) | payer MEDICARE, OTHER ==
[2017-03-26] MEDS ORDERED: Sulfameth/Trimethoprim DS 800-160mg TAB ONE (18:48)
== END 2017-03-26 18:55 | disposition home or self-care (01) ==
LOC: ERS 17:32
DX: L02.414 Cutaneous abscess of left upper limb (principal); E66.9 Obesity, unspecified; E03.9 Hypothyroidism, unspecified; E78.5 Hyperlipidemia, unspecified; I10 Essential (primary) hypertension; F32.9 Major depressive disorder, single episode, unspecified
CPT/HCPCS: 10060

== ENCOUNTER 2017-03-28 11:22 | Emergency (ER) | payer MEDICARE, OTHER | END 2017-03-28 12:50 | disposition home or self-care (01) | LOC: ERS 11:22 | DX: L02.414 Cutaneous abscess of left upper limb (principal); E66.9 Obesity, unspecified; E03.9 Hypothyroidism, unspecified; E78.5 Hyperlipidemia, unspecified; F32.9 Major depressive disorder, single episode, unspecified; I10 Essential (primary) hypertension | CPT/HCPCS: 99211; 99282; G0463 ==

== ENCOUNTER 2017-05-24 15:52 | Outpatient (CLI) | payer MEDICARE, OTHER ==
--- NOTE | 2017-05-24 18:16 | MRI ---
MRI LUMBAR SPINE WITH AND WITHOUT CONTRAST 05/24/17 Multiplanar and multisequential imaging lumbar spine obtained. Postcontrast images were obtained afte r administration of 20 mL of Multihance IV. HISTORY: Low back pain. Lumbar spinal stenosis. Bilateral hip pain. Comparison made to MRI lumbar spine dated 04/22/15. Postoperative changes of lumbar spine again noted. On the right, pedicle screws are seen from L2 through S1. On the left, pedicle screws are seen at L2, L3 and L4 levels. There is a spondylolisthesis at L4-5 of grade I measured at approximately 7 mm in the sagittal plane, unchanged from the exam of 04/22/15. There is a fluid signal collection in the posterior tissues which extends from L2-3 disc to the L5-S1 disc measuring 6 cm craniocaudal dimension in the sagittal plane. This collection measures 3.3 cm AP dimension in the sagittal plane. This fluid collection was present on the prior exam and is slightly smaller today. Previous AP dimension of the fluid collection is measured at 4.5 cm. This was describ ed as a probable seroma on the prior report. At T12-L1, no significant disc bulge. No central canal or foraminal stenosis. At L1-2, disc bulge. Pedicle screws are seen bilaterally at L2. Facet hypertrophy. Moderate central c anal stenosis and mild foraminal stenosis on the left and moderate foraminal stenosis on the right. At L2-3, diffuse disc bulge. Pedicles screws are seen at L2 and L3. There is facet hypertrophy compre ssing the thecal sac Mild to moderate central canal stenosis. Bilateral foraminal stenosis. At L3-4, mild disc bulge. Prominent facet hypertrophy. Mild central canal stenosis. mild bilateral fo raminal stenosis. At L4-5, anterolisthesis as noted above. Mild associated disc bulge. Facet hypertrophy. Mild central canal stenosis. Bilateral foraminal stenosis. More prominent on the right. At L5-S1, minimal disc bulge. Facet hypertrophy. Mild foraminal stenosis bilaterally, slightly more p ronounced on the left. IMPRESSION: 1. Postop changes of the lumbar spine as described above with significant foraminal stenosis at multiple levels. 2. There continues to be a fluid signal collection in the posterior soft tissues which was prese nt on the prior exam of 04/22/15. This was described as a probable seroma on the prior study. It is sli ghtly smaller today with dimensions given above. POS: [facility]
--- NOTE | 2017-05-24 18:19 | RAD ---
LUMBAR SPINE: 05/24/17 Four views. Lateral views taken with neutral, flexion and extension positions. HISTORY: Lumbar spinal stenosis. Pedicle screws and rods are seen transfixing L2, L3 and L4. There are pedicle screws on the right at L5-S1 without rods. Disc implants are noted at L4-5 and L5-S1. There is grade I spondylolisthesis at L4-5. Moderate degenerative changes throughout. No significant change in alignment noted with flexion and extension. IMPRESSION: Postop and degenerative changes of lumbar spine. POS: [facility]
== END 2017-05-24 15:53 | disposition home or self-care (01) ==
LOC: MRI 15:52
PROVIDERS: ATTEND Neurological Surgery
DX: M48.061 Spinal stenosis, lumbar region without neurogenic claudication (principal); M47.896 Other spondylosis, lumbar region; M99.73 Connective tissue and disc stenosis of intervertebral foramina of lumbar region; Z98.890 Other specified postprocedural states
CPT/HCPCS: 72120; 72158

== ENCOUNTER 2017-06-30 07:12 | Day surgery (SDC) | payer MEDICARE, OTHER ==
[2017-06-29 10:05] VITALS: BMI 43.0
[2017-06-30 08:06] VITALS: BP 154/53; TEMP 97.2
--- NOTE | 2017-06-30 10:47 | RAD ---
LUMBAR MYELOGRAM: HISTORY: Lumbar radiculopathy. Previous fusion. COMPARISON: 04/03/2014 EXPOSURE: 1.9 minutes 4809.5 mGy per m2. FINDINGS: Chief Design Engineer lumbar spine radiograph demonstrates five lumbar type vertebral bodies. There are bilateral tr anspedicular screws at L2, L3, and L4. There is a right-sided transpedicular screw at L5 and S1. St able prosthesis at L4-L5 and at L5-S1 disk space. There is evidence of an IVC filter. Laminectomy defect at L3, L4, and L5. Successful lumbar puncture for intrathecal contrast administration. A total of 9 mL of Isovue 200M c ontrast was administered intrathecally. The patient tolerated the procedure well. No immediate or p ost procedure complications. TECHNIQUE: Consent obtained to perform a lumbar puncture for intrathecal contrast administration. The patient's back was evaluated. The L1-L2 level was deemed appropriate. The skin was prepped and draped in a s terile fashion. Lidocaine 1% buffered with sodium bicarbonate was used for local anesthesia. Under fluoroscopic guidance, a 22 gauge spinal needle was advanced into the CSF space. There was flow of c lear CSF into the hub of the needle. Via a short tubing catheter, a total of 9 mL of Isovue-M 200 co ntrast was administered intrathecally. The patient tolerated the procedure well. No immediate or po st procedure complications. IMPRESSION: Successful lumbar puncture for lumbar myelogram. POS: [facility]
--- NOTE | 2017-06-30 11:20 | CT ---
POST MYELOGRAM LUMBAR SPINE CT: HISTORY: Lumbar radiculopathy. Previous lumbar fusion surgery. COMPARISON: 04/03/14. CORRELATION: MRI lumbar spine 05/24/17. TECHNIQUE: Post myelogram lumbar spine CT is performed in the axial plane. Reformatted images are submitted for interpretation. FINDINGS: The visualized solid organs are unremarkable. There is evidence of previous surgery in the left uppe r quadrant. IVC filter is noted. Symmetric attenuation of the psoas muscles. There is evidence of a postoperative fluid collection in the posterior soft tissues, compatible with recent MRI. Refer to that report for further detail. There is mild bone demineralization throughout the lumbar spine. Vertebral body height is maintained. There is no fracture. There are bilateral transpedicular screws at L2, L3, and L4. A right-sided transpedicular screw at L5 and S1. No periha rdware lucency. Disk prosthesis at L4-L5 and L5-S1. There is 2.7 mm of retrolisthesis of L2 upon L3, 7.7 mm anterolisthesis of L4 upon L5. Vertebral body heights are maintained. There are no fractures. T10-T11 and T11-T12: No high-grade central canal stenosis or significant foraminal narrowing. T12-L1: No significant central canal stenosis. Neural foramina are patent bilaterally. L1-L2: Vacuum disk phenomenon. Small left paracentral disk bulge. Mild central canal stenosis. Mo derate bilateral neural foraminal narrowing. L2-L3: Posterior decompressive laminectomy defect. No high-grade central canal stenosis. Moderate bilateral foraminal narrowing. L3-L4: Posterior decompressive laminectomy defect. No significant posterior disk abnormality. Ther e is mild central canal stenosis due to posterior element hypertrophy. Mild bilateral foraminal narr owing. L4-L5: There is a disk prosthesis. There is some subtle soft tissue attenuation along the posterior margin of the disk space which may represent residual disk material versus scar tissue formation. P lease refer to recent lumbar spine MRI for further detail. There is evidence of a fluid collection a t the operative site. Overall, there is mild central canal stenosis. Mild to moderate right and mil d left foraminal narrowing. L5-S1: There is a disk prosthesis and posterior decompressive changes. No high-grade central canal stenosis. Mild bilateral foraminal narrowing. IMPRESSION: 1. Postoperative changes of the lumbar spine as above. 2. Varying degrees of central canal stenosis and foraminal narrowing as detailed above. 3. Fluid collection in the operative site which his presumed to be due to a seroma. Refer to MRI re port for further detail. POS: [facility]
[2017-06-30] MEDS ORDERED: Iopamidol 200 41% 50 ML VIAL FS ONE (11:41)
== END 2017-06-30 10:00 | disposition home or self-care (01) ==
LOC: RAD 07:12
PROVIDERS: ATTEND Neurological Surgery
PROC: B00B1ZZ Plain Radiography of Spinal Cord using Low Osmolar Contrast (ICD-10-PCS; principal; 2017-06-30)
DX: M54.16 Radiculopathy, lumbar region (principal); Z98.1 Arthrodesis status; Z88.5 Allergy status to narcotic agent; Z91.048 Other nonmedicinal substance allergy status
CPT/HCPCS: 62304; 72131; 72132

== ENCOUNTER 2017-07-20 14:12 | Emergency (ER) | payer MEDICARE, OTHER ==
--- NOTE | 2017-07-20 15:27 | ULT ---
LEFT LOWER EXTREMITY VENOUS ULTRASOUND: Comparison: 05-24-16 History: Left lower extremity pain and edema. Technique: Multiplanar grayscale and color doppler images were obtained in a left lower extremity sagar ous ultrasound. Spectral analysis of the doppler waveforms were performed. FINDINGS: There appears to be partially occlusive thrombus in the left popliteal vein extending up to the proxi mal superficial femoral vein. The left common femoral vein and profunda femoral vein are patent witho ut evidence of thrombus. The posterior tibial vein shows no evidence of thrombus. The greater sapheno us vein is patent without evidence of thrombus. IMPRESSION: There appears to be a partially occlusive thrombus in the left leg extending from the proximal superf icial femoral vein down to the popliteal vein. POS: [facility]
[2017-07-20 15:33] LABS: #Eosinphils 0.1 thou/uL (0.0-0.7); #Lymphocytes 1.3 thou/uL (1.20-3.40); #Monocytes 0.3 thou/uL (0.11-0.59); #Neutrophils 3.5 thou/uL (1.40-6.50); %Basophils 0.2 % (0.0-1.0); %Eosinophils 2.8 % (0.0-10.0); %Lymphocytes 23.8 % (21.0-51.0); %Monocytes 6.5 % (0.0-10.0); %Neutrophils 66.8 % (42.0-75.0); Hemoglobin 12.8 g/dL (12.0-16.0); Mean Corpuscular HGB CONC 32.1 g/dL (32.0-36.0); Mean Corpuscular Hemoglobin 27.8 pg (27.0-31.0); Mean Corpuscular Volume 86.5 fl (81.0-99.0); Mean Platelet Volume 7.6 fL (7.4-10.4); Platelet Count 252 thou/uL (130-400); RBC Distribution Width 15.8 % (11.5-14.5); Red Blood Cell (RBC) Count 4.59 mill/uL (4.20-5.40); White Blood Cell (WBC) Count 5.3 thou/uL (4.8-10.8)
[2017-07-20 15:42] LABS: ALT (SGPT) 9 U/L (8-55); AST (SGOT) 14 U/L (5-34); Albumin 3.7 g/dL (3.4-4.8); Alkaline Phosphatase 121 U/L (40-150); Anion Gap 15 mmol/L (10-20); BUN (Urea Nitrogen) 10 mg/dL (9.8-20.1); Bilirubin, Total 0.4 mg/dL (0.2-1.2); Calc. Creatinine Clearance 0 mL/min (70-130); Calcium 9.4 mg/dL (7.8-10.44); Carbon Dioxide 25 mmol/L (23-31); Chloride 103 mmol/L (98-107); Estimated GFR-MDRD 69; Globulin 2.7 g/dL (2.4-3.5); Glucose 158 mg/dL (83-110); Protein, Total 6.4 g/dL (6.0-8.3); Sodium 139 mmol/L (136-145)
[2017-07-20 15:51] LABS: PTT 27.1 SEC (22.9-36.1); Prothrombin Time 13.3 SEC (12.0-14.7)
[2017-07-20] MEDS ORDERED: Enoxaparin Sodium 100 MG/ML SYRINGE ONE (16:31)
[2017-07-20] MEDS ORDERED: Enoxaparin Sodium 40 MG/0.4 ML SYRINGE ONE (16:31)
[2017-07-20] MEDS ORDERED: Enoxaparin Sodium 60 MG/0.6 ML SYRINGE ONE (16:34)
== END 2017-07-20 17:04 | disposition home or self-care (01) ==
LOC: ERS 14:12
DX: I82.402 Acute embolism and thrombosis of unspecified deep veins of left lower extremity (principal); E66.9 Obesity, unspecified; E03.9 Hypothyroidism, unspecified; E78.5 Hyperlipidemia, unspecified; I10 Essential (primary) hypertension; Z86.711 Personal history of pulmonary embolism; F32.9 Major depressive disorder, single episode, unspecified
CPT/HCPCS: 80053; 85025; 85610; 85730; 96372; J1650

== ENCOUNTER 2017-07-21 12:40 | Emergency (ER) | payer MEDICARE, OTHER ==
[2017-07-21] MEDS ORDERED: Acetaminophen 325 MG TAB ONE (13:35)
[2017-07-21] MEDS ORDERED: Ketorolac Tromethamine 30 MG/ML VIAL ONE (13:35)
[2017-07-21] MEDS ORDERED: Enoxaparin Sodium 100 MG/ML SYRINGE ONE (14:08)
== END 2017-07-21 14:28 | disposition home or self-care (01) ==
LOC: ERS 12:40
DX: I82.492 Acute embolism and thrombosis of other specified deep vein of left lower extremity (principal); E66.9 Obesity, unspecified; E03.9 Hypothyroidism, unspecified; E78.5 Hyperlipidemia, unspecified; I10 Essential (primary) hypertension; F32.9 Major depressive disorder, single episode, unspecified; Z79.899 Other long term (current) drug therapy
CPT/HCPCS: 96372; J1650; J1885

== ENCOUNTER 2017-07-25 13:25 | Outpatient (CLI) | payer MEDICARE, OTHER ==
--- NOTE | 2017-07-25 14:54 | RAD ---
THREE VIEWS RIGHT FOOT: Indication: Right foot pain. Comparison: None. FINDINGS: No acute fracture or subluxation is evident. Lisfranc alignment is preserved. Enthesopathic change is seen off the calcaneus. IMPRESSION: No acute osseous abnormality. POS: [facility]
== END 2017-07-25 13:26 | disposition home or self-care (01) ==
LOC: RAD 13:25
PROVIDERS: ATTEND Nurse Practitioner Family
DX: M79.671 Pain in right foot (principal)

== ENCOUNTER 2017-12-19 07:02 | Emergency (ER) | payer MEDICARE, OTHER ==
--- NOTE | 2017-12-19 08:35 | ULT ---
DOPPLER VENOUS ULTRASOUND OF THE LEFT LOWER EXTREMITY: INDICATION: History of left leg pain and DVT. COMPARISON: Prior exam dated 07/20/2017. TECHNIQUE: Vail scale, color Doppler, and vascular duplex with spectral analysis was performed of the deep venou s structures of both lower extremities. The common femoral vein, superficial femoral vein, popliteal vein, posterior tibial vein, proximal greater saphenous, and proximal profunda veins were assessed bi laterally. FINDINGS: Again seen is prominent deep venous thrombosis within the left lower extremity from the common femora l vein down to the left popliteal vein. Portions within the proximal superficial femoral vein and le ft common femoral vein are nonocclusive. The portion within the popliteal vein is nonocclusive. The re is more occlusive thrombus seen within the mid to distal left femoral vein. IMPRESSION: Stable prominent deep vein thrombosis within the left lower extremity when compared to the prior date d 07/20/2017. POS: [facility]
[2017-12-19 08:43] LABS: INR-International Normal Ratio 3.5; PTT 61.9 SEC (22.9-36.1); Prothrombin Time 35.1 SEC (12.0-14.7)
[2017-12-19] MEDS ORDERED: Acetaminophen 325 MG TAB ONE (09:07)
== END 2017-12-19 10:30 | disposition home or self-care (01) ==
LOC: ERS 07:02
DX: I82.412 Acute embolism and thrombosis of left femoral vein (principal); I82.432 Acute embolism and thrombosis of left popliteal vein; R79.1 Abnormal coagulation profile; E66.9 Obesity, unspecified; E03.9 Hypothyroidism, unspecified; E78.5 Hyperlipidemia, unspecified; I10 Essential (primary) hypertension; F32.9 Major depressive disorder, single episode, unspecified; Z86.711 Personal history of pulmonary embolism; Z79.899 Other long term (current) drug therapy; Z79.01 Long term (current) use of anticoagulants
CPT/HCPCS: 36415; 85610; 85730

== ENCOUNTER 2017-12-30 06:53 | Day surgery (SDC) | payer MEDICARE, OTHER ==
[2017-12-29 13:00] VITALS: BMI 44.4
[~2017-12-30 06:53] MED LIST: Prevnar 13-Val Conj/PF 0.5 ML SYRINGE IM ONE
[2017-12-30 08:13] VITALS: BP 148/100; TEMP 97
[2017-12-30] MEDS ORDERED: Iopamidol-M 200 41% 20 ML VIAL ONE (10:01)
--- NOTE | 2017-12-30 10:24 | RAD ---
LUMBAR MYELOGRAM: HISTORY: Lumbar radiculopathy. COMPARISON: 06/30/2017. EXPOSURE: 0.6 minutes. 1623.2 mGy*^m2. NURSE RECEPTIONIST RADIOGRAPH: The initial cold roll packer sheet iron lumbar spine radiograph demonstrates bilateral transpedicular screws at L2, L3, and L4. Unilateral right-sided transverse screw at L5 and S1. Hardware is unchanged. Stable disk pros thesis at L4-L5 and L5-S1. There is anterolisthesis of L4 upon L5 and L5 upon S1. Suture material is noted in the left upper quadrant. IVC filter is identified. FINDINGS: Successful lumbar puncture. There is evidence of mixed injection. There subdural as well as intrathecal contrast. TECHNIQUE: Consent was obtained to perform a lumbar puncture for intrathecal contrast administration. The patie nt's back was evaluated. The L2-L3 level is deemed appropriate. The skin was prepped and draped in sterile fashion. 1% Lidocaine, buffered with sodium bicarbonate was used for local anesthesia. Unde r fluoroscopic guidance, a 22-gauge spinal needle was advanced into the CSF space. The inner stylett e was removed. There was prompt flow of clear CSF into the hub of the needle. Via a short tubing ca theter, a total of 10 cc of contrast was administered into the central spinal canal. There is a comp onent of contrast in the subdural space as well as into the thecal sac. IMPRESSION: Successful lumbar puncture. Please refer to post-myelogram CT for further detail. POS: [facility]
--- NOTE | 2017-12-30 11:41 | CT ---
POST MYELOGRAM CT LUMBAR SPINE: Date: 12/30/17 HISTORY: Lumbar radiculopathy. COMPARISON: 06/30/17. TECHNIQUE: Post myelogram lumbar spine CT is performed in the axial plane. Reformatted images are submitted for interpretation. FINDINGS: Redemonstration of bilateral transpedicular screw at L2, L3, and L4. Unilateral right-sided transpedi cular screw at L5 and S1. 9.0 mm of anterolisthesis of L4 upon L5. Note is made of an IVC filter. Retroperitoneal structures are unremarkable. Redemonstration of fluid attenuation in the posterior midline soft tissues at the level of surgery suggesting longstanding pos toperative fluid. Infected fluid is less favored given the oysterman presence of the fluid and the pa tient not reporting any fever or elevated white blood cell count. There is contrast in the thecal sac and in the subdural space. Small focus of air at L1-L2 is iatrogenic. Prominent anterior osteophyte at T11-T12. T10-T11: No high grade central canal stenosis or high grade foraminal narrowing. T11-T12: No high grade central canal stenosis or high grade foraminal narrowing. T12-L1: No high grade central canal stenosis or high grade foraminal narrowing. L1-L2: Mild central canal stenosis. No significant posterior disc abnormality. Moderate to severe ri ght and moderate left foraminal narrowing. L2-L3: Laminectomy defect. No significant posterior disc abnormality. No evidence of significant zara tral canal stenosis. Moderate to severe right and moderate left foraminal narrowing. L3-L4: Posterior laminectomy defect. No significant posterior disc abnormality. No significant centr al canal stenosis. Mild right foraminal narrowing. Left neural foramen is mildly narrowed as well. L4-L5: There is a disc prosthesis. Laminectomy defect is identified. No evidence of high grade centr al canal stenosis. Neural foramina are patent. There is mild to moderate right and mild left foramina l narrowing. L5-S1: Posterior laminectomy defect. There is disc prosthesis. No high grade central canal stenosis. Neural foramina are mildly narrowed. When compared to the previous examination, the postsurgical change is similar. The degree of anteroli sthesis is similar. There is no evidence of significant change in the overall degree of the patency o f the central spinal canal and neural foramina. IMPRESSION: 1. Stable fluid in the operative site, which is presumed to be seroma. 2. Stable postoperative changes of lumbar spine. 3. Stable central canal stenosis and foraminal narrowing. POS: [facility]
== END 2017-12-30 10:00 | disposition home or self-care (01) ==
LOC: RAD 06:53
PROVIDERS: ATTEND Neurological Surgery
PROC: B01B1ZZ Fluoroscopy of Spinal Cord using Low Osmolar Contrast (ICD-10-PCS; principal; 2017-12-30)
DX: M54.16 Radiculopathy, lumbar region (principal); M48.061 Spinal stenosis, lumbar region without neurogenic claudication; R32 Unspecified urinary incontinence; E66.01 Morbid (severe) obesity due to excess calories; Z68.41 Body mass index [BMI] 40.0-44.9, adult; Z86.718 Personal history of other venous thrombosis and embolism; Z79.01 Long term (current) use of anticoagulants; Z79.82 Long term (current) use of aspirin; Z79.899 Other long term (current) drug therapy; Z88.5 Allergy status to narcotic agent; Z91.048 Other nonmedicinal substance allergy status; Z98.1 Arthrodesis status; Z98.890 Other specified postprocedural states
CPT/HCPCS: 62304; 72132

== ENCOUNTER 2018-01-14 05:53 | Emergency (ER) | payer MEDICARE, OTHER ==
[2018-01-14 07:11] LABS: INR-International Normal Ratio 3.5; PTT 46.2 SEC (22.9-36.1); Prothrombin Time 35.4 SEC (12.0-14.7)
[2018-01-14 07:12] LABS: Hemoglobin 13.4 g/dL (12.0-16.0); Mean Corpuscular HGB CONC 32.2 g/dL (32.0-36.0); Mean Corpuscular Hemoglobin 28.3 pg (27.0-31.0); Mean Corpuscular Volume 87.8 fL (78.0-98.0); Mean Platelet Volume 7.4 fL (7.4-10.4); Platelet Count 320 thou/uL (130-400); RBC Distribution Width 14.4 % (11.5-14.5); Red Blood Cell (RBC) Count 4.76 mill/uL (4.20-5.40)
[2018-01-14 07:14] LABS: Anion Gap 13 mmol/L (10-20); BUN (Urea Nitrogen) 30 mg/dL (9.8-20.1); Calc. Creatinine Clearance 0 mL/min (70-130); Calcium 9.6 mg/dL (7.8-10.44); Carbon Dioxide 26 mmol/L (23-31); Chloride 101 mmol/L (98-107); Estimated GFR-MDRD 45; Glucose 176 mg/dL (83-110); Potassium 4.6 mmol/L (3.5-5.1); Sodium 135 mmol/L (136-145)
[2018-01-14 07:35] LABS: Band 8 % (5-11); Eosinophils 1 % (0-10); Lymphocytes 5 % (21-51); MDiff Complete? YES; Monocytes 3 % (0-10); Neutrophil 82 % (42-75); PLT Morphology Comment Appears Adequate; RBC Morphology Normal; Reactive Lymphocytes 1 % (0-10); White Blood Cell (WBC) Count 21.9 thou/uL (4.8-10.8)
[2018-01-14] MEDS ORDERED: Ferric Subsulfate Topical Solution TOP SCH (09:15)
[2018-01-14] MEDS ORDERED: Ferric Subsulfate 8 ML BOT ONE (09:24)
--- NOTE | 2018-01-14 12:33 | RAD ---
LEFT KENE 4 VIEWS: HISTORY: Fall. Left knee pain. FINDINGS/IMPRESSION: There are postop changes of total knee arthroplasty in good position and alignment. No fracture or d islocation is identified. POS: [facility]
--- NOTE | 2018-01-14 12:37 | CON ---
DATE OF CONSULTATION: 01/14/2018 CONSULTING PHYSICIAN: Dieter Thao D.O., Emergency Department. CHIEF COMPLAINT: Vaginal bleeding. HISTORY OF PRESENT ILLNESS: This is a 72-year-old para 2 who presented to the Emergency Department for acute onset of vaginal bleeding after intercourse. She reports that she had intercourse for the first time in 6 years last night and began bleeding heavily afterwards with passage of clots. She had a hysterectomy 25 years ago and has not had any vaginal bleeding since then prior to now. She denies any significant pain or other concerns at this time. She did fall this morning and hit her knee and is complaining of some left knee pain as well. REVIEW OF SYSTEMS: Negative for head, eyes, ears, nose, throat, cardiovascular , respiratory, GI, , neuro, psych, musculoskeletal, skin or constitutional symptoms other than mentioned above. PAST MEDICAL HISTORY: 1. Hypertension. 2. Obesity. 3. 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 Hypothyroidism. 5. Hyperlipidemia. PAST SURGICAL HISTORY: Right and left shoulder, right knee, left knee, appendectomy, cholecystectomy, thyroidectomy, left hip, rectocele and total abdominal hysterectomy with bilateral salpingo-oophorectomy. SOCIAL HISTORY: Negative for tobacco, alcohol or drug abuse. 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 ALLERGIES: CODEINE causes a mild rash, but she can take hydrocodone. MEDICATIONS: Gabapentin 600 mg b.i.d., metoprolol ER 50 mg daily, Biotin 1 mg daily, benazepril 40 mg daily, levothyroxine 150 mcg daily, [place] 10/325 every 6 hours as needed, duloxetine delayed release 60 mg daily, Flexeril 10 mg t.i.d. , Coumadin 10 mg daily. FAMILY HISTORY: Noncontributory. PHYSICAL EXAMINATION: VITAL SIGNS: Blood pressure 124/62, pulse 74, respiratory rate 18, temperature 98.1. GENERAL: Awake, alert, in no acute distress. CHEST: Nonlabored breathing. ABDOMEN: Obese, soft, nontender to palpation. PELVIC: Reveals a surgically absent cervix with a 3 cm laceration on the right vaginal sidewall at the cuff apex that was actively bleeding. This was cauterized with silver nitrate and Monsel's solution, which appears to have resolved the bleeding. Cuff appears intact. LABORATORY DATA: WBC 21.9, hemoglobin 13.4, hematocrit 41.7, platelets 320, 000. Coags, PT 35.4, PTT 46.2, INR 3.5. Chemistry, sodium 135, creatinine 1.17 , glucose 176. ASSESSMENT AND PLAN: A 72-year-old para 2 with acute onset of vaginal bleeding secondary to a vaginal laceration after intercourse. After application of silver nitrate and Monsel's solution, there appears to be good hemostasis. She was not anemic upon presentation and does not endorse any symptoms of anemia at this time. The patient will need to follow up with an [employer]NAGER [employer] in 2 weeks to make sure everything is healed and was instructed not to put anything in her vagina until then. From an [employer] standpoint, she is cleared to go home, but will need further evaluation of her knee and other lab abnormalities. JELLY
== END 2018-01-14 10:54 | disposition home or self-care (01) ==
LOC: ERS 05:53
DX: N93.9 Abnormal uterine and vaginal bleeding, unspecified (principal); M25.562 Pain in left knee; Z86.718 Personal history of other venous thrombosis and embolism; E66.9 Obesity, unspecified; E03.9 Hypothyroidism, unspecified; E78.5 Hyperlipidemia, unspecified; I10 Essential (primary) hypertension; F32.9 Major depressive disorder, single episode, unspecified; Z79.899 Other long term (current) drug therapy; Z79.01 Long term (current) use of anticoagulants
CPT/HCPCS: 80048; 85025; 85610; 85730; 86850; 86900; 86901

== ENCOUNTER 2018-03-23 14:07 | Outpatient (CLI) | payer MEDICARE ==
--- NOTE | 2018-03-23 15:51 | BD ---
DEXA BONE DENSITOMETRY: (Dual energy X-ray Absorptiometry) DATE: 03/23/18 HISTORY: 73-year-old postmenopausal white female for baseline age-related osteoporosis screening examination. Height: 66 Weight: 275 lbs TECHNIQUE: Because of surgical hardware in the lumbar spine and left hip, the DEXA evaluation was performed at f orearm and right hip. COMPARISON: None available. FINDINGS: Bone mineral density (BMD) is given in grams per square centimeter (g/cm2): FOREARM: BMD(g/cm2) T-score Z-score Distal metaphysis: 0.552 1.9 3.7 Distal diaphysis: 0.628 0.4 2.9 Mid diaphysis: 0.678 -0.3 2.3 Total: 0.607 0.5 3.0 HIP: Femoral neck: 0.764 -0.8 1.3 Total: 0.969 0.2 2.0 IMPRESSION: 1. The mean bone mineral density of the lumbar spine is normal. Fracture risk is not increased. 2. The bone mineral density of the femoral neck is normal. Fracture risk is not increased. JAN Lee POS: [facility]
== END 2018-03-23 14:08 | disposition home or self-care (01) ==
LOC: BICMAMMO 14:07
PROVIDERS: ATTEND Family Medicine
DX: Z12.31 Encounter for screening mammogram for malignant neoplasm of breast (principal); Z13.820 Encounter for screening for osteoporosis; Z78.0 Asymptomatic menopausal state
CPT/HCPCS: 77063; 77067; 77080

== ENCOUNTER 2018-12-21 13:38 | Outpatient (CLI) | payer MEDICARE ==
--- NOTE | 2018-12-21 15:26 | MRI ---
MRI Cervical spine without contrast: HISTORY: Cervical spondylosis with myelopathy and radiculopathy. Patient complains of neck pain when her neck pops. Bilateral arm and hand numbness for one year. COMPARISON: None FINDINGS: The craniocervical junction is unremarkable. No significant cord signal abnormality. Paravertebral soft tissues have a normal appearance and normal signal intensity. Multilevel degenerative changes are seen in the cervical spine. C1-2:No significant stenosis. C2-3: There is no disc bulge or disc herniation. The central spinal canal and neural foramina are pat ent. C3-4: There is slight loss of intervertebral disc height. There is a broad-based disc osteophyte comp blanca which results in mild narrowing of the central spinal canal with flattening of the anterior aspect of the spinal cord. Moderate bilateral neural foraminal narrowing is present. Facet hypertroph ic changes are identified. C4-5: There is a broad-based disc osteophyte complex and facet hypertrophic changes. Uncinate process hypertrophy is present on the right. Generalized narrowing of the central spinal canal is present. Moderate left and severe right-sided neural foraminal narrowing is noted. C5-6: There is loss of intervertebral disc height with broad-based disc osteophyte complex present. F acet hypertrophic changes are present greater on the right. There is mild narrowing of the central spinal canal with flattening of the ventral subarachnoid space. Moderate to severe bilateral neural f oraminal narrowing is present. C6-7: Broad-based disc osteophyte complex is present. Facet hypertrophic changes are seen on the righ t. There is generalized narrowing of the central spinal canal with slight flattening of the anterior aspect of the spinal cord. Neural foramina are patent C7-T1: There is a mild disc osteophyte complex which slightly effaces the ventral subarachnoid space. Neural foramina are patent T1-T2 level and T2-3 level: There are mild disc osteophyte complexes which result in slight flattenin g of the ventral subarachnoid space at these levels. Facet hypertrophic changes are noted. There is mild bilateral neural foraminal narrowing at the T1-2 level. IMPRESSION: Multilevel degenerative changes in the cervical spine with moderate to severe degrees of neural mary inal narrowing at the C4-5 and C5-6 levels.
--- NOTE | 2018-12-21 15:27 | RAD ---
TWO VIEWS LUMBAR SPINE: HISTORY: Lumbar spondylosis with myelopathy. COMPARISON: 09/24/2014. FINDINGS: Bilateral transpedicular screws at L2, L3, and L4. Unilateral right-sided transpedicular screw at L4 and L5. No perihardware lucency. There is moderate to severe degenerative change at L2-L3. No evidence of fracture. IVC filter and left hip prosthesis is noted. Spondylolisthesis: 2.2 mm of retrolisthesis of L2 upon L3. 2.4 mm of anterolisthesis of L3 upon L4. 1.2 cm of anterolisthesis of L4 upon L5. Disk prosthesis at L4-L5 and L5-S1 is noted. IMPRESSION: 1. Extensive lumbar fusion. 2. Spondylolisthesis as detailed above. POS: [facility]
== END 2018-12-21 13:39 | disposition home or self-care (01) ==
LOC: BICMRI 13:38
PROVIDERS: ATTEND Neurological Surgery
DX: M47.12 Other spondylosis with myelopathy, cervical region (principal); M54.2 Cervicalgia; M43.16 Spondylolisthesis, lumbar region; M47.16 Other spondylosis with myelopathy, lumbar region; M48.062 Spinal stenosis, lumbar region with neurogenic claudication; M48.02 Spinal stenosis, cervical region; Z98.1 Arthrodesis status
CPT/HCPCS: 72100; 72141

== ENCOUNTER 2019-01-18 13:11 | Outpatient (CLI) | payer MEDICARE ==
--- NOTE | 2019-01-18 15:54 | MRI ---
MRI LUMBAR SPINE WITH AND WITHOUT IV CONTRAST: INDICATION: History of multiple back surgeries with spondylosis and myelopathy. The patient had a history of a r ecent fall last week with back soreness. CONTRAST: 20 cc of MultiHance. COMPARISON: Lumbar radiograph dated 12/21/2018 and an MRI of the lumbar spine dated 05/24/2017. FINDINGS: No acute fracture is evident. Susceptibility artifact from bilateral pedicle screws at L2 through S1 appear similar-appearing. The postoperative seroma within the laminectomy defect sites at the L3 th rough L5 level is slightly smaller now measuring 5.6 x 3.6 x 2.6 cm. Previously, this collection radha sured 6.1 x 3.3 x 2.6 cm. Laminectomy defect sites are seen at the L5-S1 level, L4-5, L3-4 levels. There is very slight anterior translation of L4 on L5 and L5 on S1. There is slight retrolisthesis o f L2 on L3 and L1 on L2. Conus is seen to terminate at approximately L1. Visualized aspects of the retroperitoneum and paravertebral soft tissues appear within normal limits, except for the above-mentioned seroma. At L5-S1, there is a broad-based bulge with facet hypertrophy inducing mild neural foraminal narrowin g. This is stable to the prior exam. At L4-5, there is anterolisthesis with a broad-based pseudobulge and loss of height inducing moderate bilateral neural foraminal narrowing which is stable. At L3-4, there is a broad-based bulge with facet hypertrophy inducing mild bilateral neural foraminal narrowing which is stable. At L2-3, there is a broad-based bulge with facet hypertrophy inducing moderate to severe bilateral ne ural foraminal narrowing which is stable. At the L1-L2 level, there is a broad-based bulge with facet hypertrophy inducing mild left neural for aminal narrowing and moderate right neural foraminal narrowing which is stable. At T12-L1, there is no appreciable central canal or neural foraminal narrowing. Postcontrast imaging demonstrates no definite region of abnormal enhancement. IMPRESSION: Stable postoperative lumbar spine with stable multilevel severe spondylosis with multilevel neural fo raminal narrowing as detailed above. POS: [facility]
== END 2019-01-18 13:12 | disposition home or self-care (01) ==
LOC: BICMRI 13:11
PROVIDERS: ATTEND Neurological Surgery
DX: M47.16 Other spondylosis with myelopathy, lumbar region (principal); M48.061 Spinal stenosis, lumbar region without neurogenic claudication; Z98.890 Other specified postprocedural states
CPT/HCPCS: 72158; 82565

== ENCOUNTER 2019-05-25 15:22 | Outpatient (CLI) | payer MEDICARE ==
--- NOTE | 2019-05-25 15:40 | RAD ---
Chest 2 views HISTORY: Cough and wheezing. Congestion. COMPARISON: 12/27/2009. FINDINGS: Cardiac silhouette and pulmonary vasculature are unremarkable. Mediastinum is midline. No c onfluent airspace consolidation, pneumothorax, or pleural fluid. Postoperative changes of the shoulders and lumbar spine partially visualized. There is ossification o f the anterior longitudinal ligament of the thoracic spine on the lateral view consistent with diffuse idiopathic skeletal hyperostosis. IMPRESSION: No active cardiopulmonary abnormalities are demonstrated.
== END 2019-05-25 15:23 | disposition home or self-care (01) ==
LOC: BICRAD 15:22
PROVIDERS: ATTEND Physician Assistant
DX: R06.2 Wheezing (principal)
CPT/HCPCS: 71046

== ENCOUNTER 2019-06-24 21:59 | Emergency (ER) | payer MEDICARE ==
--- NOTE | 2019-06-24 22:53 | RAD ---
AP CHEST: History: Dyspnea. Comparison: Two view chest, 05-25-2019 FINDINGS: Lungs appear clear and unchanged. Heart size is upper normal and stable. Vascular markings normal. Th e shoulder prostheses are again noted. IMPRESSION: No acute lung process. POS: [facility]
[2019-06-24 23:02] LABS: #Basophils 0.1 thou/uL (0.0-0.2); #Eosinphils 0.8 thou/uL (0.0-0.7); #Lymphocytes 2.4 thou/uL (1.20-3.40); #Monocytes 0.6 thou/uL (0.11-0.59); #Neutrophils 5.9 thou/uL (1.40-6.50); %Basophils 1.2 % (0.0-1.0); %Eosinophils 8.2 % (0.0-10.0); %Lymphocytes 24.4 % (21.0-51.0); %Monocytes 5.7 % (0.0-10.0); %Neutrophils 60.5 % (42.0-75.0); Hemoglobin 13.5 g/dL (12.0-16.0); Mean Corpuscular Hemoglobin 30.6 pg (27.0-31.0); Mean Corpuscular Volume 89.8 fL (78.0-98.0); Mean Platelet Volume 7.7 fL (7.4-10.4); Platelet Count 249 thou/uL (130-400); RBC Distribution Width 14.2 % (11.5-14.5); White Blood Cell (WBC) Count 9.8 thou/uL (4.8-10.8)
[2019-06-24 23:23] LABS: Anion Gap 14 mmol/L (10-20); BUN (Urea Nitrogen) 18 mg/dL (9.8-20.1); Calc. Creatinine Clearance 0 mL/min (70-130); Calcium 9.3 mg/dL (7.8-10.44); Carbon Dioxide 26 mmol/L (23-31); Chloride 103 mmol/L (98-107); Estimated GFR-MDRD 53; Glucose 156 mg/dL (83-110); Potassium 3.8 mmol/L (3.5-5.1); Sodium 139 mmol/L (136-145)
== END 2019-06-24 23:46 | disposition home or self-care (01) ==
LOC: ERS 21:59
DX: J45.909 Unspecified asthma, uncomplicated (principal); E03.9 Hypothyroidism, unspecified; I10 Essential (primary) hypertension; E78.5 Hyperlipidemia, unspecified; Z79.01 Long term (current) use of anticoagulants; Z79.899 Other long term (current) drug therapy
CPT/HCPCS: 71045; 80048; 83880; 85025; 87804

== ENCOUNTER 2019-08-22 13:56 | Outpatient (CLI) | payer MEDICARE ==
--- NOTE | 2019-08-22 15:31 | MMO ---
Bilateral MAMMO Bilat Screen [facility]. CLINICAL HISTORY: Patient is 74 years old and is seen for screening. The patient has no family history of breast cancer. The patient has no personal history of cancer. VIEWS: The views performed were: bilateral craniocaudal with tomosynthesis and bilateral mediolateral oblique with tomosynthesis. FILMS COMPARED: The present examination has been compared to prior imaging studies performed at [facility] on 03/11/2015, 03/13/2015, 03/12/2016 and 03/23/2018. This study has been interpreted with the assistance of computer-aided detection. MAMMOGRAM FINDINGS: There are scattered fibroglandular densities. Finding 1: There are stable benign appearing calcifications seen in both breasts. Finding 2: There are stable benign appearing densities seen in both breasts. There are no suspicious masses, suspicious calcifications, or new areas of architectural distortion. IMPRESSION: THERE IS NO MAMMOGRAPHIC EVIDENCE OF MALIGNANCY. A ROUTINE FOLLOW-UP MAMMOGRAM IN 1 YEAR IS RECOMMENDED. THE RESULTS OF THIS EXAM WERE SENT TO THE PATIENT. ACR BI-RADS Category 2 - Benign finding MAMMOGRAPHY NOTE: 1. A negative mammogram report should not delay a biopsy if a dominant of clinically suspicious mass is present. 2. Approximately 10% to 15% of breast cancers are not detected by mammography. 3. Adenosis and dense breasts may obscure an underlying neoplasm. Reported by: MARY ENRIQUEZ MD Electonically Signed: [id number]
== END 2019-08-22 13:57 | disposition home or self-care (01) ==
LOC: BICMAMMO 13:56
PROVIDERS: ATTEND Physician Assistant
DX: Z12.31 Encounter for screening mammogram for malignant neoplasm of breast (principal)
CPT/HCPCS: 77063; 77067

== ENCOUNTER 2019-08-22 15:38 | Outpatient (CLI) | payer MEDICARE, OTHER ==
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
== END 2019-08-22 15:39 | disposition home or self-care (01) ==
LOC: TBSIIMAG 15:38
PROVIDERS: ATTEND Neurological Surgery
DX: M47.16 Other spondylosis with myelopathy, lumbar region (principal); M43.16 Spondylolisthesis, lumbar region; Z98.1 Arthrodesis status
CPT/HCPCS: 72100

== ENCOUNTER 2021-07-24 14:32 | Emergency (ER) | payer OTHER ==
[2021-07-24] MEDS ORDERED: Furosemide 20 MG/2 ML VIAL ONE (15:18)
[2021-07-24 16:06] LABS: #Basophils 0.1 thou/uL (0.0-0.2); #Eosinphils 0.2 thou/uL (0.0-0.7); #Lymphocytes 2.3 thou/uL (1.20-3.40); #Monocytes 0.5 thou/uL (0.11-0.59); #Neutrophils 4.8 thou/uL (1.40-6.50); %Basophils 0.7 % (0.0-1.0); %Eosinophils 2.4 % (0.0-10.0); %Monocytes 6.7 % (0.0-10.0); %Neutrophils 61.2 % (42.0-75.0); Hemoglobin 13.8 g/dL (12.0-16.0); Mean Corpuscular Hemoglobin 29.8 pg (27.0-31.0); Mean Corpuscular Volume 90.3 fL (78.0-98.0); Platelet Count 192 thou/uL (130-400); RBC Distribution Width 14.5 % (11.5-14.5); Red Blood Cell (RBC) Count 4.63 mill/uL (4.20-5.40); White Blood Cell (WBC) Count 7.8 thou/uL (4.8-10.8)
[2021-07-24 16:32] LABS: ALT (SGPT) 13 U/L (8-55); AST (SGOT) 19 U/L (5-34); Albumin 3.7 g/dL (3.4-4.8); Alkaline Phosphatase 93 U/L (40-110); Anion Gap 17 mmol/L (10-20); BUN (Urea Nitrogen) 10 mg/dL (9.8-20.1); Bilirubin, Total 0.7 mg/dL (0.2-1.2); Calc. Creatinine Clearance 0 mL/min (70-130); Calcium 9.5 mg/dL (7.8-10.44); Carbon Dioxide 21 mmol/L (23-31); Chloride 103 mmol/L (98-107); Globulin 3.4 g/dL (2.4-3.5); Glucose 143 mg/dL (83-110); Protein, Total 7.1 g/dL (5.8-8.1); Sodium 137 mmol/L (136-145)
== END 2021-07-24 17:43 | disposition home or self-care (01) ==
LOC: ERS 14:32
DX: R60.0 Localized edema (principal); E11.9 Type 2 diabetes mellitus without complications; Z86.718 Personal history of other venous thrombosis and embolism; E03.9 Hypothyroidism, unspecified; E78.5 Hyperlipidemia, unspecified; Z86.711 Personal history of pulmonary embolism
CPT/HCPCS: 36415; 71045; 80053; 83880; 84484; 85025; 93005; 96374; J1940

== ENCOUNTER 2021-07-28 08:29 | Emergency (ER) | payer OTHER ==
[2021-07-28 09:19] LABS: #Eosinphils 0.1 thou/uL (0.0-0.7); #Lymphocytes 1.9 thou/uL (1.20-3.40); #Monocytes 0.5 thou/uL (0.11-0.59); %Basophils 0.2 % (0.0-1.0); %Eosinophils 1.5 % (0.0-10.0); %Lymphocytes 21.8 % (21.0-51.0); %Neutrophils 70.6 % (42.0-75.0); Hemoglobin 14.3 g/dL (12.0-16.0); Mean Corpuscular HGB CONC 31.9 g/dL (32.0-36.0); Mean Corpuscular Hemoglobin 29.1 pg (27.0-31.0); Mean Corpuscular Volume 91.3 fL (78.0-98.0); Mean Platelet Volume 7.5 fL (7.4-10.4); Platelet Count 255 thou/uL (130-400); RBC Distribution Width 14.4 % (11.5-14.5); Red Blood Cell (RBC) Count 4.92 mill/uL (4.20-5.40); White Blood Cell (WBC) Count 8.5 thou/uL (4.8-10.8)
[2021-07-28 09:29] LABS: ALT (SGPT) 12 U/L (8-55); AST (SGOT) 13 U/L (5-34); Albumin 3.7 g/dL (3.4-4.8); Alkaline Phosphatase 93 U/L (40-110); Anion Gap 17 mmol/L (10-20); BUN (Urea Nitrogen) 13 mg/dL (9.8-20.1); Bilirubin, Total 1.1 mg/dL (0.2-1.2); Calc. Creatinine Clearance 0 mL/min (70-130); Carbon Dioxide 21 mmol/L (23-31); Chloride 102 mmol/L (98-107); Globulin 3.3 g/dL (2.4-3.5); Glucose 214 mg/dL (83-110); Potassium 3.8 mmol/L (3.5-5.1); Sodium 136 mmol/L (136-145)
[2021-07-28 11:50] LABS: Troponin I 0.013 ng/mL (< 0.028)
== END 2021-07-28 13:02 | disposition home or self-care (01) ==
LOC: ERS 08:29
DX: R06.02 Shortness of breath (principal); N28.9 Disorder of kidney and ureter, unspecified; I11.0 Hypertensive heart disease with heart failure; I50.9 Heart failure, unspecified; E11.9 Type 2 diabetes mellitus without complications; E03.9 Hypothyroidism, unspecified; E78.5 Hyperlipidemia, unspecified; Z79.01 Long term (current) use of anticoagulants; Z79.890 Hormone replacement therapy; Z79.899 Other long term (current) drug therapy; Z86.718 Personal history of other venous thrombosis and embolism; Z86.711 Personal history of pulmonary embolism
CPT/HCPCS: 36415; 71045; 71275; 80053; 83880; 84484; 85025; 93005; 94760

== ENCOUNTER 2021-09-28 23:23 | Emergency (ER) | payer OTHER ==
[2021-09-29 01:21] LABS: #Eosinphils 0.2 thou/uL (0.0-0.7); #Lymphocytes 2.1 thou/uL (1.20-3.40); #Monocytes 0.5 thou/uL (0.11-0.59); %Basophils 0.4 % (0.0-1.0); %Eosinophils 2.4 % (0.0-10.0); %Lymphocytes 21.3 % (21.0-51.0); %Monocytes 4.9 % (0.0-10.0); Mean Corpuscular HGB CONC 31.7 g/dL (32.0-36.0); Mean Corpuscular Volume 94.6 fL (78.0-98.0); Mean Platelet Volume 8.3 fL (7.4-10.4); Platelet Count 236 thou/uL (130-400); RBC Distribution Width 13.5 % (11.5-14.5); Red Blood Cell (RBC) Count 4.34 mill/uL (4.20-5.40); White Blood Cell (WBC) Count 9.9 thou/uL (4.8-10.8)
[2021-09-29 01:48] LABS: ALT (SGPT) 12 U/L (8-55); AST (SGOT) 14 U/L (5-34); Albumin 3.7 g/dL (3.4-4.8); Alkaline Phosphatase 107 U/L (40-110); Anion Gap 18 mmol/L (10-20); BUN (Urea Nitrogen) 12 mg/dL (9.8-20.1); Bilirubin, Total 0.8 mg/dL (0.2-1.2); Calc. Creatinine Clearance 0 mL/min (70-130); Calcium 9.4 mg/dL (7.8-10.44); Carbon Dioxide 21 mmol/L (23-31); Chloride 105 mmol/L (98-107); Estimated GFR 63; Globulin 3.1 g/dL (2.4-3.5); Glucose 132 mg/dL (83-110); Potassium 3.6 mmol/L (3.5-5.1); Protein, Total 6.8 g/dL (5.8-8.1); Sodium 140 mmol/L (136-145)
[2021-09-29] MEDS ORDERED: Furosemide 40 MG/4 ML VIAL ONE (02:03)
[2021-09-29] MEDS ORDERED: Furosemide 40 MG TAB ONE (02:14)
== END 2021-09-29 02:40 | disposition home or self-care (01) ==
LOC: ERS 23:23
DX: R06.00 Dyspnea, unspecified (principal); E11.9 Type 2 diabetes mellitus without complications; I10 Essential (primary) hypertension; E03.9 Hypothyroidism, unspecified; E78.5 Hyperlipidemia, unspecified; I26.99 Other pulmonary embolism without acute cor pulmonale; F32.A Depression, unspecified; Z79.899 Other long term (current) drug therapy; Z79.01 Long term (current) use of anticoagulants
CPT/HCPCS: 36415; 71045; 80053; 83880; 84484; 85025; 93005; J1940

== ENCOUNTER 2022-01-28 20:49 | Emergency (ER) | payer OTHER, MEDICARE ==
[2022-01-28] MEDS ORDERED: FENTANYL 50 MCG/ML 1 ML VIAL ONE (23:30)
== END 2022-01-29 00:56 | disposition home or self-care (01) ==
LOC: ERS 20:49
DX: S00.03XA Contusion of scalp, initial encounter (principal); S00.33XA Contusion of nose, initial encounter; D32.9 Benign neoplasm of meninges, unspecified; E78.5 Hyperlipidemia, unspecified; E03.9 Hypothyroidism, unspecified; E11.9 Type 2 diabetes mellitus without complications; I10 Essential (primary) hypertension; W01.0XXA Fall on same level from slipping, tripping and stumbling without subsequent striking against object, initial encounter; Y92.091 Bathroom in other non-institutional residence as the place of occurrence of the external cause; Z79.01 Long term (current) use of anticoagulants; Z79.899 Other long term (current) drug therapy
CPT/HCPCS: 70450; 70486; 72125; 73564 ×2; J3010; 96374

== ENCOUNTER 2022-03-08 11:36 | Emergency (ER) | payer OTHER ==
[2022-03-08 12:29] LABS: #Eosinphils 0.2 thou/uL (0.0-0.7); #Lymphocytes 1.7 thou/uL (1.20-3.40); #Monocytes 0.4 thou/uL (0.11-0.59); #Neutrophils 6.1 thou/uL (1.40-6.50); %Basophils 0.4 % (0.0-1.0); %Monocytes 4.4 % (0.0-10.0); %Neutrophils 73.1 % (42.0-75.0); Hemoglobin 13.7 g/dL (12.0-16.0); Mean Corpuscular Hemoglobin 29.9 pg (27.0-31.0); Mean Corpuscular Volume 90.4 fl (78.0-98.0); Platelet Count 222 10x3/uL (130-400); RBC Distribution Width 13.8 % (11.5-14.5); Red Blood Cell (RBC) Count 4.58 mill/uL (4.20-5.40); White Blood Cell (WBC) Count 8.4 10x3/uL (4.8-10.8)
[2022-03-08 12:50] LABS: ALT (SGPT) 9 U/L (8-55); AST (SGOT) 11 U/L (5-34); Albumin 3.8 g/dL (3.4-4.8); Alkaline Phosphatase 91 U/L (40-110); Anion Gap 13 mmol/L (10-20); BUN (Urea Nitrogen) 10 mg/dL (9.8-20.1); Bilirubin, Total 0.9 mg/dL (0.2-1.2); Calc. Creatinine Clearance 0 mL/min (70-130); Calcium 9.2 mg/dL (7.8-10.44); Carbon Dioxide 24 mmol/L (23-31); Chloride 104 mmol/L (98-107); Estimated GFR 67; Glucose 262 mg/dL (83-110); Potassium 3.8 mmol/L (3.5-5.1); Protein, Total 6.8 g/dL (5.8-8.1); Sodium 137 mmol/L (136-145)
[2022-03-08] MEDS ORDERED: Furosemide 40 MG/4 ML VIAL ONE ×2 (14:16→14:33)
[2022-03-08] MEDS ORDERED: Furosemide 40 MG TAB ONE (14:34)
== END 2022-03-08 14:55 | disposition home or self-care (01) ==
LOC: ERS 11:36
DX: R60.9 Edema, unspecified (principal); E11.9 Type 2 diabetes mellitus without complications; I10 Essential (primary) hypertension; E78.5 Hyperlipidemia, unspecified; E03.9 Hypothyroidism, unspecified; Z79.899 Other long term (current) drug therapy; Z79.01 Long term (current) use of anticoagulants; Z79.84 Long term (current) use of oral hypoglycemic drugs
CPT/HCPCS: 36415; 71045; 80053; 83880; 84484; 85025; 93005; J1940

== ENCOUNTER 2022-04-01 12:50 | Outpatient (CLI) | payer MEDICARE ==
[2022-04-01] MEDS ORDERED: Magnevist 469MG/ML 20 ML VIAL ONE (15:29)
== END 2022-04-01 12:51 | disposition home or self-care (01) ==
LOC: TBSIIMAG 12:50
PROVIDERS: ATTEND Neurological Surgery
DX: D32.0 Benign neoplasm of cerebral meninges (principal); R29.6 Repeated falls; M47.812 Spondylosis without myelopathy or radiculopathy, cervical region; M48.02 Spinal stenosis, cervical region
CPT/HCPCS: 70553; 72141; A9579

== ENCOUNTER 2022-04-09 06:02 | Day surgery (SDC) | payer MEDICARE ==
[2022-04-08 13:23] VITALS: BMI 45.8
[2022-04-09] MEDS ORDERED: Lidocaine 1% PF 5 ML VIAL ONE (07:51)
[2022-04-09] MEDS ORDERED: PROPOFOL 200 MG/20 ML VIAL ONE (07:51)
== END 2022-04-09 09:05 | disposition home or self-care (01) ==
LOC: SDC 06:02
PROVIDERS: ATTEND Internal Medicine
PROC: 0DBK8ZX Excision of Ascending Colon, Via Natural or Artificial Opening Endoscopic, Diagnostic (ICD-10-PCS; principal; 2022-04-09)
PROC: 0DBH8ZX Excision of Cecum, Via Natural or Artificial Opening Endoscopic, Diagnostic (ICD-10-PCS; 2022-04-09)
PROC: 0DBK8ZX Excision of Ascending Colon, Via Natural or Artificial Opening Endoscopic, Diagnostic (ICD-10-PCS; 2022-04-09)
PROC: 0DBL8ZX Excision of Transverse Colon, Via Natural or Artificial Opening Endoscopic, Diagnostic (ICD-10-PCS; 2022-04-09)
PROC: 0DBN8ZX Excision of Sigmoid Colon, Via Natural or Artificial Opening Endoscopic, Diagnostic (ICD-10-PCS; 2022-04-09)
PROC: 0DBP8ZX Excision of Rectum, Via Natural or Artificial Opening Endoscopic, Diagnostic (ICD-10-PCS; 2022-04-09)
PROC: 0DBM8ZX Excision of Descending Colon, Via Natural or Artificial Opening Endoscopic, Diagnostic (ICD-10-PCS; 2022-04-09)
DX: D12.0 Benign neoplasm of cecum (principal); D12.2 Benign neoplasm of ascending colon; K63.5 Polyp of colon; K52.9 Noninfective gastroenteritis and colitis, unspecified; K57.30 Diverticulosis of large intestine without perforation or abscess without bleeding; K64.8 Other hemorrhoids; K64.4 Residual hemorrhoidal skin tags; K62.89 Other specified diseases of anus and rectum; G47.33 Obstructive sleep apnea (adult) (pediatric); I10 Essential (primary) hypertension; E03.9 Hypothyroidism, unspecified; M19.90 Unspecified osteoarthritis, unspecified site; Z79.01 Long term (current) use of anticoagulants; Z79.84 Long term (current) use of oral hypoglycemic drugs; Z79.890 Hormone replacement therapy; Z79.899 Other long term (current) drug therapy; Z88.5 Allergy status to narcotic agent; Z91.048 Other nonmedicinal substance allergy status
CPT/HCPCS: 88305; J2704

== ENCOUNTER 2022-05-19 11:12 | Emergency (ER) | payer MEDICARE ==
[2022-05-19 12:09] LABS: #Eosinphils 0.3 thou/uL (0.0-0.7); #Monocytes 0.5 thou/uL (0.11-0.59); #Neutrophils 4.5 thou/uL (1.40-6.50); %Basophils 0.4 % (0.0-1.0); %Eosinophils 3.6 % (0.0-10.0); %Lymphocytes 27.8 % (21.0-51.0); %Monocytes 6.5 % (0.0-10.0); %Neutrophils 61.8 % (42.0-75.0); Hemoglobin 12.8 g/dL (12.0-16.0); Mean Corpuscular HGB CONC 31.7 g/dL (32.0-36.0); Mean Corpuscular Volume 91.3 fl (78.0-98.0); Mean Platelet Volume 7.8 fL (7.4-10.4); Platelet Count 214 10x3/uL (130-400); RBC Distribution Width 13.7 % (11.5-14.5); Red Blood Cell (RBC) Count 4.42 mill/uL (4.20-5.40); White Blood Cell (WBC) Count 7.3 10x3/uL (4.8-10.8)
[2022-05-19 12:20] LABS: INR-International Normal Ratio 1.1; Prothrombin Time 14.9 sec (12.0-14.7)
[2022-05-19 12:28] LABS: Anion Gap 14 mmol/L (10-20); BUN (Urea Nitrogen) 11 mg/dL (9.8-20.1); Calc. Creatinine Clearance 0 mL/min (70-130); Carbon Dioxide 24 mmol/L (23-31); Chloride 104 mmol/L (98-107); Sodium 138 mmol/L (136-145)
[2022-05-19 12:29] LABS: ALT (SGPT) 7 U/L (8-55); AST (SGOT) 12 U/L (5-34); Albumin 3.3 g/dL (3.4-4.8); Alkaline Phosphatase 103 U/L (40-110); Bilirubin, Total 0.7 mg/dL (0.2-1.2); Estimated GFR 75; Globulin 3.1 g/dL (2.4-3.5); Glucose 117 mg/dL (83-110); Lipase 6 U/L (8-78); Magnesium 1.7 mg/dL (1.6-2.6); Protein, Total 6.4 g/dL (5.8-8.1)
[2022-05-19] MEDS ORDERED: Iopamidol-370 76% 500 ML 1 ML ONE (17:23)
== END 2022-05-19 14:30 | disposition home or self-care (01) ==
LOC: ERS 11:12
DX: R07.89 Other chest pain (principal); E11.9 Type 2 diabetes mellitus without complications; E03.9 Hypothyroidism, unspecified; I10 Essential (primary) hypertension; E78.5 Hyperlipidemia, unspecified; Z79.01 Long term (current) use of anticoagulants; Z79.84 Long term (current) use of oral hypoglycemic drugs; Z79.899 Other long term (current) drug therapy
CPT/HCPCS: 36415; 71275; 80053; 83690; 83735; 83880; 84484; 85025; 85610; 85730; 93005; Q9967

== ENCOUNTER 2022-09-29 12:11 | Emergency (ER) | payer OTHER ==
[2022-09-29 13:49] LABS: #Monocytes 0.4 thou/uL (0.11-0.59); #Neutrophils 1.1 thou/uL (1.40-6.50); %Basophils 0.7 % (0.0-1.0); %Lymphocytes 43.1 % (21.0-51.0); %Neutrophils 40.5 % (42.0-75.0); Hematocrit 39.7 % (36.0-47.0); Hemoglobin 12.9 g/dL (12.0-16.0); Mean Corpuscular HGB CONC 32.5 g/dL (32.0-36.0); Mean Corpuscular Volume 89.2 fl (78.0-98.0); Mean Platelet Volume 9.8 fL (7.4-10.4); Platelet Count 169 10x3/uL (130-400); RBC Distribution Width 15.9 % (11.5-14.5); Red Blood Cell (RBC) Count 4.45 mill/uL (4.20-5.40); White Blood Cell (WBC) Count 2.7 10x3/uL (4.8-10.8)
[2022-09-29 14:59] LABS: Bacteria/HPF None Seen HPF (None Seen); Bilirubin Negative (Negative); Blood, Urine Negative (Negative); CAUTI Indications for Culture Fever or rigors; Clarity Clear (Clear); Glucose, Urine (Dipstick) Normal (Negative); Ketone, Urine Negative (Negative); Leukocyte Negative Leu/uL (Negative); Nitrite Negative (Negative); Protein, Urine (Dipstick) 10 mg/dL (Neg-Trace); RBC/HPF 0-3 HPF (0-3); Specific Gravity, Urine 1.011 (1.002-1.036); Squamous Epithelial 0-3 HPF (0-3); Urobilinogen Normal mg/dL (Less than 2); WBC/HPF 0-3 HPF (0-3); pH, Urine 5.5 (5.0-9.0)
[2022-09-29 15:01] LABS: Urine Culture Reflex No No
[2022-09-29 15:42] LABS: SARS-CoV-2 NAA Rapid Test DETECTED (NotDetected)
[2022-09-29 15:43] LABS: Albumin 3.5 g/dL (3.4-4.8)
[2022-09-29 15:44] LABS: Chloride 105 mmol/L (98-107); Potassium 3.4 mmol/L (3.5-5.1); Sodium 140 mmol/L (136-145)
[2022-09-29 15:45] LABS: Calcium 8.8 mg/dL (7.8-10.44); Globulin 2.7 g/dL (2.4-3.5); Glucose 72 mg/dL (83-110); Protein, Total 6.2 g/dL (5.8-8.1)
[2022-09-29 15:46] LABS: Carbon Dioxide 23 mmol/L (23-31)
[2022-09-29 15:47] LABS: Anion Gap 15 mmol/L (10-20); Bilirubin, Total 0.5 mg/dL (0.2-1.2)
[2022-09-29 15:48] LABS: Alkaline Phosphatase 76 U/L (40-110); Calc. Creatinine Clearance 0 mL/min (70-130); Estimated GFR 57
[2022-09-29 15:49] LABS: BUN (Urea Nitrogen) 11 mg/dL (9.8-20.1)
[2022-09-29 15:50] LABS: AST (SGOT) 48 U/L (5-34)
[2022-09-29 15:51] LABS: ALT (SGPT) 34 U/L (8-55); CK (CPK) 269 U/L (29-168)
== END 2022-09-29 16:30 | disposition home or self-care (01) ==
LOC: ERS 12:11
DX: U07.1 COVID-19 (principal); E11.9 Type 2 diabetes mellitus without complications; I10 Essential (primary) hypertension; E03.9 Hypothyroidism, unspecified; E78.5 Hyperlipidemia, unspecified; Z79.84 Long term (current) use of oral hypoglycemic drugs; Z79.899 Other long term (current) drug therapy; Z79.01 Long term (current) use of anticoagulants
CPT/HCPCS: 36415; 51701; 70450; 80053; 81001; 82550; 84484; 85025; 93005

== ENCOUNTER 2023-08-25 21:39 | Observation (INO) | payer MEDICARE ==
[~2023-08-25 21:39] MED LIST changes: +Iopamidol-370 76% 500 ML MDV (1 ML CHARGE) ONE; -Prevnar 13-Val Conj/PF 0.5 ML SYRINGE IM ONE
[2023-08-25 23:13] LABS: #Basophils 0.08 10x3/uL (0.0-0.2); %Basophils 0.9 % (0.0-1.0); %Eosinophils 2.2 % (0.0-10.0); %Lymphocytes 23.3 % (21.0-51.0); %Monocytes 6.1 % (0.0-10.0); %Neutrophils 67.2 % (42.0-75.0); Hematocrit 42.8 % (36.0-47.0); Hemoglobin 13.9 g/dL (12.0-16.0); Mean Corpuscular HGB CONC 32.5 g/dL (32.0-36.0); Mean Corpuscular Hemoglobin 29.6 pg (27.0-31.0); Mean Corpuscular Volume 91.1 fL (78.0-98.0); Mean Platelet Volume 10.3 fL (7.4-10.4); Platelet Count 216 10x3/uL (130-400); RBC Distribution Width 14.3 % (11.5-14.5)
[2023-08-25] MEDS ORDERED: Aspirin Chewable 81 MG TAB ONE (23:30)
[2023-08-25 23:38] LABS: Digoxin Less than 0.19 ng/mL (0.8-2.0)
[2023-08-25 23:39] LABS: Troponin I 0.012 ng/mL (< 0.028)
[2023-08-25 23:41] LABS: ALT (SGPT) 11 U/L (8-55); AST (SGOT) 15 U/L (5-34); Albumin 3.6 g/dL (3.4-4.8); Alkaline Phosphatase 107 U/L (40-110); Anion Gap 19 mmol/L (10-20); BUN (Urea Nitrogen) 16 mg/dL (9.8-20.1); Bilirubin, Total 0.7 mg/dL (0.2-1.2); Calc. Creatinine Clearance 0 mL/min (70-130); Calcium 9.4 mg/dL (7.8-10.44); Carbon Dioxide 19 mmol/L (23-31); Chloride 107 mmol/L (98-107); Estimated GFR 55; Globulin 3.2 g/dL (2.4-3.5); Glucose 124 mg/dL (83-110); Lipase 12 U/L (8-78); Potassium 3.7 mmol/L (3.5-5.1); Protein, Total 6.8 g/dL (5.8-8.1); Sodium 141 mmol/L (136-145)
[2023-08-26] MEDS ORDERED: Ondansetron ODT 4 MG TAB PO PRN (02:38)
[2023-08-26] MEDS ORDERED: Ondansetron PF 4 MG/2 ML Vial IVP PRN (02:38)
[2023-08-26] MEDS ORDERED: Acetaminophen 325 MG TAB PO PRN (02:38)
[2023-08-26] MEDS ORDERED: Acetaminophen 650 MG Suppository PR PRN (02:38)
[2023-08-26] MEDS ORDERED: Dextrose 5% in Water 1,000 ML IV PRN (03:52)
[2023-08-26] MEDS ORDERED: HumaLOG 300 UNITS/3 ML VIAL SC PRN (03:52)
[2023-08-26] MEDS ORDERED: Dextrose 50% Abboject 50 ML SYRINGE SLOW IVP PRN (03:52)
[2023-08-26] MEDS ORDERED: Glucagon 1 MG/ML KIT IM PRN (03:52)
[2023-08-26 04:04] LABS: #Basophils 0.07 10x3/uL (0.0-0.2); %Basophils 0.8 % (0.0-1.0); %Eosinophils 3.1 % (0.0-10.0); %Lymphocytes 28.4 % (21.0-51.0); %Monocytes 7.1 % (0.0-10.0); %Neutrophils 60.3 % (42.0-75.0); Hemoglobin 13.4 g/dL (12.0-16.0); Mean Corpuscular HGB CONC 31.9 g/dL (32.0-36.0); Mean Corpuscular Hemoglobin 29.5 pg (27.0-31.0); Mean Corpuscular Volume 92.5 fL (78.0-98.0); Platelet Count 178 10x3/uL (130-400); RBC Distribution Width 14.4 % (11.5-14.5); Red Blood Cell (RBC) Count 4.54 mill/uL (4.20-5.40)
[2023-08-26 04:31] LABS: Troponin I 0.014 ng/mL (< 0.028)
[2023-08-26] MEDS ORDERED: Nitroglycerin 0.4 MG TAB 1 EACH ONE (05:43)
[2023-08-26] MEDS: Nitroglycerin 0.4 MG TAB (25 Tab Bottle) SL PRN (05:45)
[2023-08-26 07:14] LABS: Anion Gap 11 mmol/L (10-20); BUN (Urea Nitrogen) 15 mg/dL (9.8-20.1); Calc. Creatinine Clearance 0 mL/min (70-130); Calcium 9.2 mg/dL (7.8-10.44); Carbon Dioxide 25 mmol/L (23-31); Chloride 107 mmol/L (98-107); Estimated GFR 70; Glucose 108 mg/dL (83-110); Potassium 3.5 mmol/L (3.5-5.1); Sodium 139 mmol/L (136-145)
[2023-08-26 07:20] LABS: Troponin I 0.012 ng/mL (< 0.028)
[2023-08-26 08:11] VITALS: BMI 50.3
[2023-08-26] MEDS ORDERED: Aspirin Chewable 81 MG TAB ONE (09:51)
[2023-08-26] MEDS ORDERED: Apixaban 5 MG TAB ONE (10:39)
[2023-08-26] MEDS ORDERED: Lisinopril 20 MG TAB ONE (10:39)
[2023-08-26] MEDS ORDERED: Atorvastatin Calcium 20 MG TAB ONE ×2 (10:39→10:53)
[2023-08-26] MEDS: Aspirin Chewable 81 MG TAB PO SCH (10:42)
[2023-08-26] MEDS: Apixaban 5 MG TAB PO SCH ×2 (10:43→21:16)
[2023-08-26] MEDS: Atorvastatin Calcium 20 MG TAB PO SCH (10:43)
[2023-08-26] MEDS: Lisinopril 20 MG TAB PO SCH (10:43)
[2023-08-26] MEDS ORDERED: hydrALAZINE 20 MG/ML VIAL SLOW IVP PRN (13:42)
[2023-08-26] MEDS: Amlodipine 5 MG TAB PO SCH ×2 (15:08→15:14)
[2023-08-26] MEDS: Lisinopril 10 MG TAB PO SCH (15:09)
[2023-08-26] MEDS: Gabapentin 400 MG CAP PO SCH (21:16)
[2023-08-26] MEDS: Calcium Carbonate 500 MG ChewTAB PO PRN (21:52)
[2023-08-27] MEDS: Levothyroxine 150 MCG TAB PO SCH (05:33)
[2023-08-27] MEDS: Amlodipine 5 MG TAB PO SCH (09:04)
[2023-08-27] MEDS: Atorvastatin Calcium 20 MG TAB PO SCH (09:05)
[2023-08-27] MEDS: Lisinopril 20 MG TAB PO SCH (09:05)
[2023-08-27] MEDS: Multivitamin W/ Minerals 1 TAB PO SCH (09:06)
[2023-08-27] MEDS: FLUoxetine HCl 20 MG CAP PO SCH (09:06)
[2023-08-27] MEDS: HumaLOG 300 UNITS/3 ML VIAL SC PRN (13:45)
[2023-08-27 16:43] VITALS: TEMP 98.7
[2023-08-27 16:48] VITALS: BP 135/64
== END 2023-08-27 18:35 | disposition home or self-care (01) ==
LOC: ERS 21:39 → ERHOLD 08-26 02:20 → 2SW 08-26 14:10
PROVIDERS: ADMIT Student in an Organized Health Care Education/Training Program; ATTEND Internal Medicine
PROC: B246ZZZ Ultrasonography of Right and Left Heart (ICD-10-PCS; principal; 2023-08-26)
DX: R07.9 Chest pain, unspecified (principal); I10 Essential (primary) hypertension; E78.5 Hyperlipidemia, unspecified; E03.9 Hypothyroidism, unspecified; E11.42 Type 2 diabetes mellitus with diabetic polyneuropathy; Z86.718 Personal history of other venous thrombosis and embolism; Z86.711 Personal history of pulmonary embolism; Z98.49 Cataract extraction status, unspecified eye; Z90.710 Acquired absence of both cervix and uterus; Z98.890 Other specified postprocedural states; Z79.01 Long term (current) use of anticoagulants; Z79.899 Other long term (current) drug therapy; Z79.890 Hormone replacement therapy; Z88.5 Allergy status to narcotic agent; Z91.048 Other nonmedicinal substance allergy status
CPT/HCPCS: 71045; 71275; 74174; 80048; 80053; 80162; 82962 ×2; 83690; 84484 ×3; 85025 ×2; 93005; 93306; 94760 ×2; 97116; Q9967; 36415; 36416

== ENCOUNTER 2023-09-03 09:37 | Observation (INO) | payer MEDICARE ==
[2023-09-03 11:28] LABS: #Basophils 0.06 10x3/uL (0.0-0.2); %Basophils 0.9 % (0.0-1.0); %Eosinophils 4.6 % (0.0-10.0); %Lymphocytes 22.3 % (21.0-51.0); %Monocytes 7.8 % (0.0-10.0); %Neutrophils 64.1 % (42.0-75.0); Hemoglobin 13.9 g/dL (12.0-16.0); Mean Corpuscular HGB CONC 33.1 g/dL (32.0-36.0); Mean Corpuscular Hemoglobin 29.9 pg (27.0-31.0); Mean Corpuscular Volume 90.3 fL (78.0-98.0); Mean Platelet Volume 10.5 fL (7.4-10.4); Platelet Count 204 10x3/uL (130-400); RBC Distribution Width 14.3 % (11.5-14.5); Red Blood Cell (RBC) Count 4.65 mill/uL (4.20-5.40)
[2023-09-03 11:44] LABS: ALT (SGPT) 14 U/L (8-55); AST (SGOT) 16 U/L (5-34); Albumin 3.3 g/dL (3.4-4.8); Alkaline Phosphatase 88 U/L (40-110); Anion Gap 13 mmol/L (10-20); BUN (Urea Nitrogen) 13 mg/dL (9.8-20.1); Bilirubin, Total 0.9 mg/dL (0.2-1.2); Calc. Creatinine Clearance 0 mL/min (70-130); Calcium 9.6 mg/dL (7.8-10.44); Carbon Dioxide 26 mmol/L (23-31); Chloride 104 mmol/L (98-107); Estimated GFR 68; Globulin 3.4 g/dL (2.4-3.5); Glucose 171 mg/dL (83-110); Potassium 3.9 mmol/L (3.5-5.1); Protein, Total 6.7 g/dL (5.8-8.1); Sodium 139 mmol/L (136-145)
[2023-09-03 11:47] LABS: Troponin I Less than 0.010 ng/mL (< 0.028)
[2023-09-03] MEDS ORDERED: Acetaminophen 650 MG Suppository PR PRN (13:16)
[2023-09-03] MEDS ORDERED: Ondansetron PF 4 MG/2 ML Vial IVP PRN (13:16)
[2023-09-03] MEDS ORDERED: Ondansetron ODT 4 MG TAB PO PRN (13:16)
[2023-09-03] MEDS ORDERED: Glucagon 1 MG/ML KIT IM PRN (13:35)
[2023-09-03] MEDS ORDERED: Dextrose 5% in Water 1,000 ML IV PRN (13:35)
[2023-09-03] MEDS ORDERED: HumaLOG 300 UNITS/3 ML VIAL SC PRN (13:35)
[2023-09-03] MEDS ORDERED: Dextrose 50% Abboject 50 ML SYRINGE SLOW IVP PRN (13:35)
[2023-09-03 15:37] LABS: Troponin I Less than 0.010 ng/mL (< 0.028)
[2023-09-03 19:41] LABS: Troponin I Less than 0.010 ng/mL (< 0.028)
[2023-09-03 21:32] VITALS: BMI 45.1
[2023-09-03] MEDS: Gabapentin 300 MG CAP PO SCH (21:51)
[2023-09-03] MEDS: Famotidine 20 MG TAB PO SCH (21:53)
[2023-09-03] MEDS: Apixaban 5 MG TAB PO SCH (21:53)
[2023-09-03] MEDS: Atorvastatin Calcium 20 MG TAB PO SCH (21:53)
[2023-09-04 05:56] LABS: #Basophils 0.05 10x3/uL (0.0-0.2); %Basophils 0.7 % (0.0-1.0); %Eosinophils 6.5 % (0.0-10.0); %Lymphocytes 26.1 % (21.0-51.0); %Monocytes 8.2 % (0.0-10.0); %Neutrophils 58.1 % (42.0-75.0); Hematocrit 40.7 % (36.0-47.0); Hemoglobin 13.1 g/dL (12.0-16.0); Mean Corpuscular HGB CONC 32.2 g/dL (32.0-36.0); Mean Corpuscular Hemoglobin 29.4 pg (27.0-31.0); Mean Corpuscular Volume 91.3 fL (78.0-98.0); Mean Platelet Volume 9.9 fL (7.4-10.4); Platelet Count 191 10x3/uL (130-400); RBC Distribution Width 14.1 % (11.5-14.5); Red Blood Cell (RBC) Count 4.46 mill/uL (4.20-5.40)
[2023-09-04 06:13] LABS: Anion Gap 15 mmol/L (10-20); BUN (Urea Nitrogen) 13 mg/dL (9.8-20.1); Calc. Creatinine Clearance 112 mL/min (70-130); Calcium 9.2 mg/dL (7.8-10.44); Carbon Dioxide 22 mmol/L (23-31); Chloride 106 mmol/L (98-107); Estimated GFR 74; Glucose 125 mg/dL (83-110); Potassium 3.6 mmol/L (3.5-5.1); Sodium 139 mmol/L (136-145)
[2023-09-04] MEDS: Levothyroxine 150 MCG TAB PO SCH (06:35)
[2023-09-04] MEDS ORDERED: Regadenoson 0.4 MG/5 ML SYRINGE ONE (12:03)
[2023-09-04] MEDS: Aspirin Chewable 81 MG TAB PO SCH (12:05)
[2023-09-04] MEDS: FLUoxetine HCl 20 MG CAP PO SCH (12:44)
[2023-09-04] MEDS: Amlodipine 10 MG TAB PO SCH (12:44)
[2023-09-04] MEDS: Mirabegron ER 25 MG ER.TAB PO SCH (12:45)
[2023-09-04 15:39] LABS: Bacteria/HPF None Seen HPF (None Seen); Bilirubin Negative (Negative); Blood, Urine Negative (Negative); CAUTI Indications for Culture Alt mental st,lethar; Clarity Clear (Clear); Glucose, Urine (Dipstick) Normal (Negative); Ketone, Urine Negative (Negative); Leukocyte Negative Leu/uL (Negative); Nitrite Negative (Negative); Protein, Urine (Dipstick) Negative (Neg-Trace); RBC/HPF 0-3 HPF (0-3); Squamous Epithelial 0-3 HPF (0-3); Urobilinogen Normal mg/dL (Less than 2); WBC/HPF 0-3 HPF (0-3); pH, Urine 5.5 (5.0-9.0)
[2023-09-04 15:41] LABS: Urine Culture Reflex No No
[2023-09-04] MEDS: Acetaminophen 325 MG TAB PO PRN (16:35)
[2023-09-05 04:54] LABS: #Basophils 0.04 10x3/uL (0.0-0.2); %Basophils 0.6 % (0.0-1.0); %Eosinophils 5.5 % (0.0-10.0); %Lymphocytes 25.7 % (21.0-51.0); %Monocytes 7.4 % (0.0-10.0); %Neutrophils 60.5 % (42.0-75.0); Hematocrit 42.6 % (36.0-47.0); Hemoglobin 13.8 g/dL (12.0-16.0); Mean Corpuscular HGB CONC 32.4 g/dL (32.0-36.0); Mean Corpuscular Hemoglobin 29.6 pg (27.0-31.0); Mean Corpuscular Volume 91.2 fL (78.0-98.0); Mean Platelet Volume 10.3 fL (7.4-10.4); Platelet Count 202 10x3/uL (130-400); RBC Distribution Width 14.1 % (11.5-14.5); Red Blood Cell (RBC) Count 4.67 mill/uL (4.20-5.40)
[2023-09-05 05:33] LABS: ALT (SGPT) 12 U/L (8-55); AST (SGOT) 15 U/L (5-34); Albumin 3.1 g/dL (3.4-4.8); Alkaline Phosphatase 91 U/L (40-110); Anion Gap 16 mmol/L (10-20); BUN (Urea Nitrogen) 18 mg/dL (9.8-20.1); Bilirubin, Total 0.7 mg/dL (0.2-1.2); Calc. Creatinine Clearance 103 mL/min (70-130); Calcium 9.4 mg/dL (7.8-10.44); Carbon Dioxide 22 mmol/L (23-31); Chloride 105 mmol/L (98-107); Estimated GFR 67; Glucose 142 mg/dL (83-110); Potassium 3.8 mmol/L (3.5-5.1); Protein, Total 6.1 g/dL (5.8-8.1); Sodium 139 mmol/L (136-145)
[2023-09-05 16:04] VITALS: BP 125/56; TEMP 97.9
== END 2023-09-05 19:14 | disposition home or self-care (01) ==
LOC: SUATTDRO 09:37 → ERS 09:37 → 2SE 14:30
PROVIDERS: ADMIT Family Medicine; ATTEND Family Medicine
DX: R07.9 Chest pain, unspecified (principal); I10 Essential (primary) hypertension; E78.00 Pure hypercholesterolemia, unspecified; E03.9 Hypothyroidism, unspecified; N39.0 Urinary tract infection, site not specified; E11.9 Type 2 diabetes mellitus without complications; Z86.718 Personal history of other venous thrombosis and embolism; Z88.5 Allergy status to narcotic agent; Z91.048 Other nonmedicinal substance allergy status; Z98.890 Other specified postprocedural states; Z79.899 Other long term (current) drug therapy; Z79.01 Long term (current) use of anticoagulants; Z79.82 Long term (current) use of aspirin; Z90.710 Acquired absence of both cervix and uterus; Z90.89 Acquired absence of other organs
CPT/HCPCS: 71045; 78452; 80048; 80053 ×2; 81001; 82962 ×3; 83880; 84484 ×2; 85025 ×3; 93005; 93017; 99285; A9500; G0378 ×4; J2785 ×2; 36415; 36416

== ENCOUNTER 2024-04-04 08:45 | Emergency (ER) | payer MEDICARE, OTHER, SELFPAY ==
[2024-04-04] MEDS ORDERED: HYDROcodone/Acetaminophen 5/325 mg Tablet ONE (09:31)
[2024-04-04 10:58] LABS: #Basophils 0.07 10x3/uL (0.0-0.2); %Basophils 0.8 % (0.0-1.0); %Eosinophils 2.9 % (0.0-10.0); %Lymphocytes 17.3 % (21.0-51.0); %Monocytes 5.6 % (0.0-10.0); %Neutrophils 72.9 % (42.0-75.0); Hematocrit 40.5 % (36.0-47.0); Hemoglobin 12.7 g/dL (12.0-16.0); Mean Corpuscular HGB CONC 31.4 g/dL (32.0-36.0); Mean Corpuscular Hemoglobin 28.9 pg (27.0-31.0); Mean Platelet Volume 10.1 fL (7.4-10.4); Platelet Count 226 10x3/uL (130-400); RBC Distribution Width 15.7 % (11.5-14.5)
[2024-04-04 11:14] LABS: ALT (SGPT) 8 U/L (Less than 34); AST (SGOT) 14 U/L (11-34); Albumin 3.2 g/dL (3.1-4.5); Alkaline Phosphatase 99 U/L (40-110); Anion Gap 13 mmol/L (10-20); BUN (Urea Nitrogen) 12 mg/dL (9.8-20.1); Bilirubin, Total 1.1 mg/dL (0.3-1.2); Calc. Creatinine Clearance 0 mL/min (70-130); Calcium 9.1 mg/dL (7.8-10.44); Carbon Dioxide 24 mmol/L (23-31); Chloride 107 mmol/L (98-107); Estimated GFR 85; Globulin 3.7 g/dL (2.4-3.5); Glucose 184 mg/dL (83-110); Potassium 4.2 mmol/L (3.5-5.1); Protein, Total 6.9 g/dL (5.8-8.1); Sodium 140 mmol/L (136-145)
== END 2024-04-04 14:28 | disposition home or self-care (01) ==
LOC: ERS 08:45
DX: M25.551 Pain in right hip (principal); I10 Essential (primary) hypertension; E11.9 Type 2 diabetes mellitus without complications; E03.9 Hypothyroidism, unspecified; W18.09XA Striking against other object with subsequent fall, initial encounter; Y92.008 Other place in unspecified non-institutional (private) residence as the place of occurrence of the external cause; Z55.0 Illiteracy and low-level literacy; Z86.711 Personal history of pulmonary embolism; Z86.718 Personal history of other venous thrombosis and embolism; Z79.01 Long term (current) use of anticoagulants; Z79.84 Long term (current) use of oral hypoglycemic drugs; Z79.899 Other long term (current) drug therapy
CPT/HCPCS: 36415; 72192; 80053; 85025

== ENCOUNTER 2024-04-07 14:19 | Emergency (ER) | payer MEDICARE, SELFPAY ==
[2024-04-07] MEDS ORDERED: HYDROcodone/Acetaminophen 5/325 mg Tablet ONE (17:29)
== END 2024-04-07 19:00 | disposition home or self-care (01) ==
LOC: ERS 14:19
DX: S70.01XA Contusion of right hip, initial encounter (principal); E11.9 Type 2 diabetes mellitus without complications; I10 Essential (primary) hypertension; E78.5 Hyperlipidemia, unspecified; W19.XXXA Unspecified fall, initial encounter
CPT/HCPCS: 99283